=== PATIENT | male | born 1985 | race Caucasian/White ===

== ENCOUNTER 2018-09-22 13:02 | Inpatient (IN) | payer OTHER ==
[2018-09-22 13:20] VITALS: BMI 30.1
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
[2018-09-22] MEDS ORDERED: MAGNESIUM CITRATE 300 ML BOTTLE PO PRN (14:48)
[2018-09-22] MEDS ORDERED: LOPERAMIDE HCL 2 MG CAPSULE PO PRN (14:48)
[2018-09-22] MEDS ORDERED: MENTHOL/PHENOL 1 EACH UD MM PRN (14:48)
[2018-09-22] MEDS ORDERED: MAG HYDROX/AL HYDROX/SIMETH 30 ML UNIT-DOSE CUP PO PRN (14:48)
[2018-09-22] MEDS ORDERED: P-EPHED 60MG/TRIPROLIDI 2.5MG TABLET PO PRN (14:48)
[2018-09-22] MEDS ORDERED: guaiFENesin/D-METHORPHAN HB 10 ML UNIT-DOSE CUPS PO PRN (14:48)
[2018-09-22] MEDS ORDERED: MAGNESIUM HYDROX 2400MG/30ML ORAL SUSPENSION 30 ML CUP PO PRN (14:48)
[2018-09-22] MEDS ORDERED: TUBERCULIN PPD 5 TU/0.1ML VIAL ID ONE (16:34)
[2018-09-22] MEDS: IBUPROFEN 400 MG TABLET (FP) PO PRN (16:43)
[2018-09-22] MEDS: hydrOXYzine PAMOATE 50 MG CAPSULE (FP) PO PRN ×2 (16:43→21:17)
[2018-09-22] MEDS: NICOTINE 21 MG/24 HOURS TOPICAL PATCH TD SCH (16:46)
[2018-09-22] MEDS: THIAMINE HCL 100 MG TABLET (FP) PO SCH (21:17)
[2018-09-22] MEDS: MELATONIN 5 MG TABLETS PO PRN (21:17)
[2018-09-22 22:51] LABS: URINE APPEARANCE CLEAR; URINE BILIRUBIN NEGATIVE (<2.0 mg/dL); URINE COLOR STRAW; URINE GLUCOSE (UA) NEGATIVE (NEGATIVE); URINE KETONE NEGATIVE (NEGATIVE); URINE LEUK ESTERASE NEGATIVE (NEGATIVE); URINE NITRITE NEGATIVE (NEGATIVE); URINE PROTEIN NEGATIVE (NEGATIVE); URINE UROBILINOGEN NEGATIVE mg/dL (0.2-1.0)
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
[2018-09-23] MEDS: PRENATAL VITAMINS W/ FOLIC ACID TABLET (FP) PO SCH (09:59)
[2018-09-23] MEDS: NICOTINE 21 MG/24 HOURS TOPICAL PATCH TD SCH (09:59)
[2018-09-23 10:45] LABS: HEMATOCRIT 44.8 % (35.4-49); HEMOGLOBIN 14.6 GM/dL (11.7-16.9); MCH 30.7 pg (25.7-33.7); MCHC 32.6 g/dl (32.0-35.9); MEAN CELL VOLUME 94.2 fl (80-96); MEAN PLT VOLUME 9.2 fl (7.5-11.1); PLATELET COUNT 213 K/MM3 (134-434); RBC 4.76 M/mm3 (4.00-5.60); RDW 14.1 % (11.9-15.9); WHITE BLOOD COUNT 5.7 K/mm3 (4.0-10.0)
[2018-09-23 10:58] LABS: ALBUMIN 4.1 g/dl (3.4-5.0); ALK PHOS 85 U/L (45-117); ANION GAP 9 MMOL/L (8-16); BILIRUBIN,TOTAL 0.2 mg/dL (0.2-1); BLOOD UREA NITROGEN 18 mg/dL (7-18); CALCIUM 8.9 mg/dL (8.5-10.1); CHLORIDE 106 mmol/L (98-107); CO2 26 mmol/L (21-32); CREATININE 1.1 mg/dL (0.55-1.3); GLUCOSE,RANDOM 86 mg/dL (74-106); POTASSIUM 4.1 mmol/L (3.5-5.1); SGOT/AST 34 U/L (15-37); SGPT/ALT 39 U/L (13-61); SODIUM 141 mmol/L (136-145); TOT PROT 7.8 g/dl (6.4-8.2)
[2018-09-23] MEDS: THIAMINE HCL 100 MG TABLET (FP) PO SCH (21:18)
[2018-09-23] MEDS: MELATONIN 5 MG TABLETS PO PRN (21:20)
[2018-09-23] MEDS: hydrOXYzine PAMOATE 50 MG CAPSULE (FP) PO PRN (21:20)
[2018-09-24] MEDS: NICOTINE 21 MG/24 HOURS TOPICAL PATCH TD SCH (10:09)
[2018-09-24] MEDS: PRENATAL VITAMINS W/ FOLIC ACID TABLET (FP) PO SCH (10:09)
[2018-09-24] MEDS: hydrOXYzine PAMOATE 50 MG CAPSULE (FP) PO PRN ×2 (13:53→21:25)
[2018-09-24] MEDS: COLLOIDAL OATMEAL 1 BAR EACH TP PRN (13:56)
--- NOTE | 2018-09-24 16:50 | PN ---
BHS Progress Note Note: Noted 1 mm papular lesions on forehead. 2.5 cm circumscribed erythematous lesion on (R) lateral forehead, opposite (R) periorbital area. No eye involvement. Dry falky skin noted on both feet. Assess: Possible facial tinea/ringworm Plan: Tolnaftate cream to (R) facial rash. Tolnaftate cream to both feet. Reviewed hand hygiene.
[2018-09-24] MEDS: TOLNAFTATE 1% CREAM 15 GM TUBE TP SCH (21:24)
[2018-09-24] MEDS: MELATONIN 5 MG TABLETS PO PRN (21:25)
[2018-09-24] MEDS: THIAMINE HCL 100 MG TABLET (FP) PO SCH (21:26)
[2018-09-25] MEDS: PRENATAL VITAMINS W/ FOLIC ACID TABLET (FP) PO SCH (09:31)
[2018-09-25] MEDS: NICOTINE 21 MG/24 HOURS TOPICAL PATCH TD SCH (09:31)
[2018-09-25] MEDS: TOLNAFTATE 1% CREAM 15 GM TUBE TP SCH ×2 (09:32→21:13)
[2018-09-25] MEDS: hydrOXYzine PAMOATE 50 MG CAPSULE (FP) PO PRN ×2 (12:00→21:15)
[2018-09-25] MEDS: THIAMINE HCL 100 MG TABLET (FP) PO SCH (21:12)
[2018-09-25] MEDS: SUVOREXANT 10 MG TABLET PO PRN (21:15)
[2018-09-25] MEDS: MELATONIN 5 MG TABLETS PO PRN (21:15)
[2018-09-26] MEDS: ACETAMINOPHEN 325 MG TABLET (FP) PO PRN (09:53)
[2018-09-26] MEDS: hydrOXYzine PAMOATE 50 MG CAPSULE (FP) PO PRN ×2 (09:53→21:22)
[2018-09-26] MEDS: PRENATAL VITAMINS W/ FOLIC ACID TABLET (FP) PO SCH (10:49)
[2018-09-26] MEDS: TOLNAFTATE 1% CREAM 15 GM TUBE TP SCH ×2 (10:49→21:32)
[2018-09-26] MEDS: NICOTINE 21 MG/24 HOURS TOPICAL PATCH TD SCH (10:49)
[2018-09-26] MEDS: THIAMINE HCL 100 MG TABLET (FP) PO SCH (21:20)
[2018-09-26] MEDS: SUVOREXANT 10 MG TABLET PO PRN (21:21)
[2018-09-26] MEDS: MELATONIN 5 MG TABLETS PO PRN (21:21)
[2018-09-27] MEDS: TOLNAFTATE 1% CREAM 15 GM TUBE TP SCH ×2 (10:55→21:18)
[2018-09-27] MEDS: PRENATAL VITAMINS W/ FOLIC ACID TABLET (FP) PO SCH (10:55)
[2018-09-27] MEDS: NICOTINE 21 MG/24 HOURS TOPICAL PATCH TD SCH (10:55)
[2018-09-27] MEDS: hydrOXYzine PAMOATE 50 MG CAPSULE (FP) PO PRN ×2 (15:34→21:18)
[2018-09-27] MEDS: IBUPROFEN 400 MG TABLET (FP) PO PRN (15:34)
[2018-09-27] MEDS: MELATONIN 5 MG TABLETS PO PRN (21:16)
[2018-09-27] MEDS: THIAMINE HCL 100 MG TABLET (FP) PO SCH (21:16)
[2018-09-27] MEDS: SUVOREXANT 10 MG TABLET PO PRN (21:16)
[2018-09-27] MEDS: ACETAMINOPHEN 325 MG TABLET (FP) PO PRN (21:17)
[2018-09-28] MEDS: PRENATAL VITAMINS W/ FOLIC ACID TABLET (FP) PO SCH (09:55)
[2018-09-28] MEDS: TOLNAFTATE 1% CREAM 15 GM TUBE TP SCH ×2 (09:55→21:09)
[2018-09-28] MEDS: NICOTINE 21 MG/24 HOURS TOPICAL PATCH TD SCH (09:55)
--- NOTE | 2018-09-28 14:05 | PN ---
BHS Progress Note Note: C/o dry itchy scalp. Dandruff - scalp w/ dry flaky skin. No increased erythema. No lesions. Plan: Selenium shampoo daily.
[2018-09-28] MEDS: THIAMINE HCL 100 MG TABLET (FP) PO SCH (21:07)
[2018-09-28] MEDS: SUVOREXANT 10 MG TABLET PO PRN (21:08)
[2018-09-28] MEDS: hydrOXYzine PAMOATE 50 MG CAPSULE (FP) PO PRN (21:08)
[2018-09-28] MEDS: MELATONIN 5 MG TABLETS PO PRN (21:08)
[2018-09-29] MEDS: PRENATAL VITAMINS W/ FOLIC ACID TABLET (FP) PO SCH (10:50)
[2018-09-29] MEDS: NICOTINE 21 MG/24 HOURS TOPICAL PATCH TD SCH (10:50)
[2018-09-29] MEDS: SELENIUM SULFIDE 2.25% 180 ML SHAMPOO TP SCH (10:50)
[2018-09-29] MEDS: TOLNAFTATE 1% CREAM 15 GM TUBE TP SCH ×2 (10:50→21:21)
[2018-09-29] MEDS: THIAMINE HCL 100 MG TABLET (FP) PO SCH (21:18)
[2018-09-29] MEDS: MELATONIN 5 MG TABLETS PO PRN (21:19)
[2018-09-29] MEDS: hydrOXYzine PAMOATE 50 MG CAPSULE (FP) PO PRN (21:20)
[2018-09-30] MEDS: NICOTINE 21 MG/24 HOURS TOPICAL PATCH TD SCH (10:13)
[2018-09-30] MEDS: SELENIUM SULFIDE 2.25% 180 ML SHAMPOO TP SCH (10:13)
[2018-09-30] MEDS: TOLNAFTATE 1% CREAM 15 GM TUBE TP SCH ×2 (10:13→21:26)
[2018-09-30] MEDS: PRENATAL VITAMINS W/ FOLIC ACID TABLET (FP) PO SCH (10:13)
--- NOTE | 2018-09-30 11:18 | PN ---
S Progress Note Note: Patient complains of sleeping poorly despite taking Belsomra 10 mg at bedtime. Requests that dosage of medication be increased
[2018-09-30] MEDS: THIAMINE HCL 100 MG TABLET (FP) PO SCH (21:26)
[2018-09-30] MEDS: MELATONIN 5 MG TABLETS PO PRN (21:26)
[2018-09-30] MEDS: hydrOXYzine PAMOATE 50 MG CAPSULE (FP) PO PRN (21:26)
[2018-09-30] MEDS: SUVOREXANT 15 MG TABLET PO PRN (21:26)
[2018-10-01] MEDS: SELENIUM SULFIDE 2.25% 180 ML SHAMPOO TP SCH (10:50)
[2018-10-01] MEDS: NICOTINE 21 MG/24 HOURS TOPICAL PATCH TD SCH (10:50)
[2018-10-01] MEDS: PRENATAL VITAMINS W/ FOLIC ACID TABLET (FP) PO SCH (10:50)
[2018-10-01] MEDS: TOLNAFTATE 1% CREAM 15 GM TUBE TP SCH ×2 (10:50→21:54)
[2018-10-01] MEDS: hydrOXYzine PAMOATE 50 MG CAPSULE (FP) PO PRN (21:32)
[2018-10-01] MEDS: THIAMINE HCL 100 MG TABLET (FP) PO SCH (21:32)
[2018-10-01] MEDS: MELATONIN 5 MG TABLETS PO PRN (21:32)
[2018-10-01] MEDS: SUVOREXANT 15 MG TABLET PO PRN (21:33)
[2018-10-02] MEDS: PRENATAL VITAMINS W/ FOLIC ACID TABLET (FP) PO SCH (11:30)
[2018-10-02] MEDS: SELENIUM SULFIDE 2.25% 180 ML SHAMPOO TP SCH (11:30)
[2018-10-02] MEDS: TOLNAFTATE 1% CREAM 15 GM TUBE TP SCH ×2 (11:30→22:07)
[2018-10-02] MEDS: NICOTINE 21 MG/24 HOURS TOPICAL PATCH TD SCH (11:30)
[2018-10-02] MEDS: MELATONIN 5 MG TABLETS PO PRN (21:33)
[2018-10-02] MEDS: hydrOXYzine PAMOATE 50 MG CAPSULE (FP) PO PRN (21:33)
[2018-10-02] MEDS: THIAMINE HCL 100 MG TABLET (FP) PO SCH (21:33)
[2018-10-02] MEDS: SUVOREXANT 15 MG TABLET PO PRN (21:34)
[2018-10-02] MEDS: IBUPROFEN 400 MG TABLET (FP) PO PRN (22:09)
[2018-10-03] MEDS: PRENATAL VITAMINS W/ FOLIC ACID TABLET (FP) PO SCH (10:13)
[2018-10-03] MEDS: COLLOIDAL OATMEAL 1 BAR EACH TP PRN (10:15)
[2018-10-03] MEDS: hydrOXYzine PAMOATE 50 MG CAPSULE (FP) PO PRN ×2 (10:15→21:30)
[2018-10-03] MEDS: TOLNAFTATE 1% CREAM 15 GM TUBE TP SCH ×2 (10:16→21:30)
[2018-10-03] MEDS: NICOTINE 21 MG/24 HOURS TOPICAL PATCH TD SCH (10:16)
[2018-10-03] MEDS: SELENIUM SULFIDE 2.25% 180 ML SHAMPOO TP SCH (10:16)
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
[2018-10-03] MEDS: HYDROCORTISONE 1% TOPICAL CREAM 30 GM TUBE TP SCH ×2 (13:32→21:31)
[2018-10-03] MEDS: SUVOREXANT 15 MG TABLET PO PRN (21:29)
[2018-10-03] MEDS: MELATONIN 5 MG TABLETS PO PRN (21:30)
[2018-10-03] MEDS: THIAMINE HCL 100 MG TABLET (FP) PO SCH (21:30)
[2018-10-04] MEDS: HYDROCORTISONE 1% TOPICAL CREAM 30 GM TUBE TP SCH ×2 (10:24→21:26)
[2018-10-04] MEDS: PRENATAL VITAMINS W/ FOLIC ACID TABLET (FP) PO SCH (10:24)
[2018-10-04] MEDS: NICOTINE 21 MG/24 HOURS TOPICAL PATCH TD SCH (10:24)
[2018-10-04] MEDS: SELENIUM SULFIDE 2.25% 180 ML SHAMPOO TP SCH (10:24)
[2018-10-04] MEDS: TOLNAFTATE 1% CREAM 15 GM TUBE TP SCH ×2 (10:24→21:28)
[2018-10-04] MEDS: hydrOXYzine PAMOATE 50 MG CAPSULE (FP) PO PRN (21:24)
[2018-10-04] MEDS: THIAMINE HCL 100 MG TABLET (FP) PO SCH (21:24)
[2018-10-04] MEDS: MELATONIN 5 MG TABLETS PO PRN (21:24)
[2018-10-04] MEDS: IBUPROFEN 400 MG TABLET (FP) PO PRN (21:27)
[2018-10-05] MEDS: HYDROCORTISONE 1% TOPICAL CREAM 30 GM TUBE TP SCH ×2 (12:28→21:20)
[2018-10-05] MEDS: PRENATAL VITAMINS W/ FOLIC ACID TABLET (FP) PO SCH (12:28)
[2018-10-05] MEDS: SELENIUM SULFIDE 2.25% 180 ML SHAMPOO TP SCH (12:28)
[2018-10-05] MEDS: TOLNAFTATE 1% CREAM 15 GM TUBE TP SCH ×2 (12:28→21:20)
[2018-10-05] MEDS: NICOTINE 21 MG/24 HOURS TOPICAL PATCH TD SCH (12:28)
[2018-10-05] MEDS: hydrOXYzine PAMOATE 50 MG CAPSULE (FP) PO PRN ×2 (14:09→21:18)
[2018-10-05] MEDS: MELATONIN 5 MG TABLETS PO PRN (21:18)
[2018-10-05] MEDS: THIAMINE HCL 100 MG TABLET (FP) PO SCH (21:18)
[2018-10-05] MEDS ORDERED: SUVOREXANT 15 MG TABLET PO SCH (22:00)
[2018-10-06] MEDS: NICOTINE 21 MG/24 HOURS TOPICAL PATCH TD SCH (10:01)
[2018-10-06] MEDS: HYDROCORTISONE 1% TOPICAL CREAM 30 GM TUBE TP SCH ×2 (10:01→21:34)
[2018-10-06] MEDS: PRENATAL VITAMINS W/ FOLIC ACID TABLET (FP) PO SCH (10:01)
[2018-10-06] MEDS: TOLNAFTATE 1% CREAM 15 GM TUBE TP SCH ×2 (10:02→21:32)
[2018-10-06] MEDS: hydrOXYzine PAMOATE 50 MG CAPSULE (FP) PO PRN ×2 (10:02→21:31)
--- NOTE | 2018-10-06 12:32 | PN ---
S Progress Note Note: Patient reports sleeping poorly despite taking Belsomra 15 mg at bedtime. Medication dosage is being increased to 20 mg
--- NOTE | 2018-10-06 14:32 | PN ---
S Progress Note (SOAP) Subjective: patient here requesting MAT w/ Naltrexone and transition to injectable upon d./c from this facility , planning to go to [facility] outpt . Sentt o this facility by drug court . last opiate use 08/29/18 prior to incarceration . Denies recent use . Home Medication List Medication Instructions Recorded Confirmed Type NK [No Known Home Medication] 09/22/18 09/22/18 History Active Medications Generic Name Dose Route Start Last Admin Trade Name Kwasiq PRN Reason Stop Dose Admin Acetaminophen 650 mg 09/22/18 14:48 09/27/18 21:17 Tylenol - PO 650 mg Q4H PRN Administration FEVER Al Hydroxide/Mg Hydroxide 30 ml 09/22/18 14:48 Mylanta Oral Suspension - PO Q6H PRN DYSPEPSIA Colloidal Oatmeal 1 applic 09/24/18 13:21 10/03/18 10:15 Aveeno Soap - TP 1 bar DAILY PRN Administration HYGEINE Eucalyptus/Menthol/Phenol/Sorbitol 1 each 09/22/18 14:48 Cepastat Lozenge - MM Q4H PRN SORE THROAT Guaifenesin 10 ml 09/22/18 14:48 Robitussin Dm - PO Q6H PRN COUGH Hydrocortisone 1 applic 10/03/18 12:30 10/06/18 10:01 Hytone 1% Cream - TP 1 applic BID MARELY Administration Hydroxyzine Pamoate 50 mg 09/22/18 14:48 10/06/18 10:02 Vistaril - PO 50 mg Q4H PRN Administration AGITATION Ibuprofen 400 mg 09/22/18 14:48 10/04/18 21:27 Motrin - PO 400 mg Q6H PRN Administration Pain level 4-6 Loperamide HCl 4 mg 09/22/18 14:48 Imodium - PO Q6H PRN DIARRHEA Magnesium Citrate 300 ml 09/22/18 14:48 Citroma - PO Q48H PRN CONSTIPATION Magnesium Hydroxide 30 ml 09/22/18 14:48 Milk Of Magnesia - PO DAILY PRN CONSTIPATION Melatonin 5 mg 09/22/18 22:00 10/05/18 21:18 Melatonin PO 5 mg HS PRN Administration INSOMNIA Nicotine 21 mg 09/22/18 15:30 10/06/18 10:01 Nicoderm Patch - TD Not Given DAILY MARELY Multivit/Folic Acid/Iron 1 tab 09/23/18 10:00 10/06/18 10:01 Vitamins (Sjr) - PO Not Given DAILY MARELY Pseudoephedrine/Triprolidine 1 combo 09/22/18 14:48 Actifed - PO TID PRN NASAL CONGESTION Suvorexant 20 mg 10/06/18 22:00 Belsomra PO 10/09/18 21:59 HS PRN INSOMNIA Thiamine HCl 100 mg 09/22/18 22:00 10/05/18 21:18 Vitamin B1 - PO 100 mg HS MARELY Administration Tolnaftate 1 applic 09/24/18 22:00 10/06/18 10:02 Tinactin 1% Cream - TP Not Given BID [facility] Objective: wnwd , ambulating freely . Vital Signs - 24 hr 10/06/18 10/06/18 10/06/18 00:30 03:30 06:57 Temperature 98.0 F Pulse Rate 80 Respiratory 18 18 19 Rate Blood Pressure 128/76 CBC,CMP WBC 5.7 K/mm3 (4.0-10.0) 09/23/18 06:00 RBC 4.76 M/mm3 (4.00-5.60) 09/23/18 06:00 Hgb 14.6 GM/dL (11.7-16.9) 09/23/18 06:00 Hct 44.8 % (35.4-49) 09/23/18 06:00 MCV 94.2 fl (80-96) 09/23/18 06:00 MCH 30.7 pg (25.7-33.7) 09/23/18 06:00 MCHC 32.6 g/dl (32.0-35.9) 09/23/18 06:00 RDW 14.1 % (11.9-15.9) 09/23/18 06:00 Plt Count 213 K/MM3 (134-434) 09/23/18 06:00 MPV 9.2 fl (7.5-11.1) 09/23/18 06:00 Sodium 141 mmol/L (136-145) 09/23/18 06:00 Potassium 4.1 mmol/L (3.5-5.1) 09/23/18 06:00 Chloride 106 mmol/L (98-107) 09/23/18 06:00 Carbon Dioxide 26 mmol/L (21-32) 09/23/18 06:00 Anion Gap 9 MMOL/L (8-16) 09/23/18 06:00 BUN 18 mg/dL (7-18) 09/23/18 06:00 Creatinine 1.1 mg/dL (0.55-1.3) 09/23/18 06:00 Creat Clearance w eGFR > 60 (>60) 09/23/18 06:00 Random Glucose 86 mg/dL (74-106) 09/23/18 06:00 Calcium 8.9 mg/dL (8.5-10.1) 09/23/18 06:00 Total Bilirubin 0.2 mg/dL (0.2-1) 09/23/18 06:00 AST 34 U/L (15-37) 09/23/18 06:00 ALT 39 U/L (13-61) 09/23/18 06:00 Alkaline Phosphatase 85 U/L (45-117) 09/23/18 06:00 Total Protein 7.8 g/dl (6.4-8.2) 09/23/18 06:00 Albumin 4.1 g/dl (3.4-5.0) 09/23/18 06:00 10/06/18 17:09 Assessment: Opiate dependence by history , court mandate to treatment . Plan: start Naltrexone 10/13/17 , urine toxicology discussed with patient , agreeable w/ POC
[2018-10-06] MEDS: SUVOREXANT 20 MG TABLET PO PRN (21:30)
[2018-10-06] MEDS: MELATONIN 5 MG TABLETS PO PRN (21:31)
[2018-10-06] MEDS: THIAMINE HCL 100 MG TABLET (FP) PO SCH (21:31)
[2018-10-06] MEDS: IBUPROFEN 400 MG TABLET (FP) PO PRN (21:33)
[2018-10-07] MEDS: HYDROCORTISONE 1% TOPICAL CREAM 30 GM TUBE TP SCH ×2 (11:51→21:35)
[2018-10-07] MEDS: PRENATAL VITAMINS W/ FOLIC ACID TABLET (FP) PO SCH (11:51)
[2018-10-07] MEDS: TOLNAFTATE 1% CREAM 15 GM TUBE TP SCH ×2 (11:51→21:35)
[2018-10-07] MEDS: NICOTINE 21 MG/24 HOURS TOPICAL PATCH TD SCH (11:51)
[2018-10-07] MEDS: MELATONIN 5 MG TABLETS PO PRN (21:32)
[2018-10-07] MEDS: THIAMINE HCL 100 MG TABLET (FP) PO SCH (21:32)
[2018-10-07] MEDS: hydrOXYzine PAMOATE 50 MG CAPSULE (FP) PO PRN (21:33)
[2018-10-07] MEDS: IBUPROFEN 400 MG TABLET (FP) PO PRN (21:33)
[2018-10-07] MEDS: SUVOREXANT 20 MG TABLET PO PRN (21:34)
[2018-10-08] MEDS: HYDROCORTISONE 1% TOPICAL CREAM 30 GM TUBE TP SCH ×2 (10:06→21:32)
[2018-10-08] MEDS: NICOTINE 21 MG/24 HOURS TOPICAL PATCH TD SCH (10:06)
[2018-10-08] MEDS: PRENATAL VITAMINS W/ FOLIC ACID TABLET (FP) PO SCH (10:06)
[2018-10-08] MEDS: TOLNAFTATE 1% CREAM 15 GM TUBE TP SCH ×2 (10:06→21:32)
[2018-10-08 11:13] LABS: COCAINE, UR NEGATIVE ng/ml (CUTOFF=300); METHADONE, UR NEGATIVE ng/ml (CUTOFF=300); OPIATES, URI NEGATIVE ng/ml (CUTOFF=300); PHENCYCLIDINE,URINE NEGATIVE ng/ml (CUTOFF=25); URINE AMPHETAMINES NEGATIVE ng/ml (CUTOFF=500); URINE BARBITURATES NEGATIVE ng/ml (CUTOFF=200); URINE BENZODIAZEPINES NEGATIVE ng/ml (CUTOFF=200)
[2018-10-08] MEDS: THIAMINE HCL 100 MG TABLET (FP) PO SCH (21:27)
[2018-10-08] MEDS: MELATONIN 5 MG TABLETS PO PRN (21:27)
[2018-10-08] MEDS: hydrOXYzine PAMOATE 50 MG CAPSULE (FP) PO PRN (21:27)
[2018-10-08] MEDS: SUVOREXANT 20 MG TABLET PO PRN (21:30)
[2018-10-08] MEDS: IBUPROFEN 400 MG TABLET (FP) PO PRN (21:30)
[2018-10-09] MEDS: TOLNAFTATE 1% CREAM 15 GM TUBE TP SCH ×2 (10:07→21:43)
[2018-10-09] MEDS: NICOTINE 21 MG/24 HOURS TOPICAL PATCH TD SCH (10:07)
[2018-10-09] MEDS: HYDROCORTISONE 1% TOPICAL CREAM 30 GM TUBE TP SCH ×2 (10:07→21:43)
[2018-10-09] MEDS: PRENATAL VITAMINS W/ FOLIC ACID TABLET (FP) PO SCH (10:07)
[2018-10-09] MEDS: hydrOXYzine PAMOATE 50 MG CAPSULE (FP) PO PRN ×2 (10:08→21:41)
[2018-10-09] MEDS: IBUPROFEN 400 MG TABLET (FP) PO PRN (17:04)
[2018-10-09] MEDS: ACETAMINOPHEN 325 MG TABLET (FP) PO PRN (21:41)
[2018-10-09] MEDS: SUVOREXANT 20 MG TABLET PO PRN (21:41)
[2018-10-09] MEDS: MELATONIN 5 MG TABLETS PO PRN (21:42)
[2018-10-09] MEDS: THIAMINE HCL 100 MG TABLET (FP) PO SCH (21:43)
[2018-10-10] MEDS: PRENATAL VITAMINS W/ FOLIC ACID TABLET (FP) PO SCH (11:36)
[2018-10-10] MEDS: NICOTINE 21 MG/24 HOURS TOPICAL PATCH TD SCH (11:36)
[2018-10-10] MEDS: TOLNAFTATE 1% CREAM 15 GM TUBE TP SCH ×2 (11:36→21:28)
[2018-10-10] MEDS: HYDROCORTISONE 1% TOPICAL CREAM 30 GM TUBE TP SCH ×2 (11:36→21:28)
[2018-10-10] MEDS: hydrOXYzine PAMOATE 50 MG CAPSULE (FP) PO PRN (21:27)
[2018-10-10] MEDS: THIAMINE HCL 100 MG TABLET (FP) PO SCH (21:27)
[2018-10-10] MEDS: IBUPROFEN 400 MG TABLET (FP) PO PRN (21:27)
[2018-10-10] MEDS: MELATONIN 5 MG TABLETS PO PRN (21:27)
[2018-10-10] MEDS: SUVOREXANT 15 MG TABLET PO PRN (21:29)
[2018-10-11] MEDS: NICOTINE 21 MG/24 HOURS TOPICAL PATCH TD SCH (10:04)
[2018-10-11] MEDS: TOLNAFTATE 1% CREAM 15 GM TUBE TP SCH ×2 (10:04→22:14)
[2018-10-11] MEDS: HYDROCORTISONE 1% TOPICAL CREAM 30 GM TUBE TP SCH ×2 (10:04→21:36)
[2018-10-11] MEDS: PRENATAL VITAMINS W/ FOLIC ACID TABLET (FP) PO SCH (10:04)
[2018-10-11] MEDS: COLLOIDAL OATMEAL 1 BAR EACH TP PRN (10:04)
[2018-10-11] MEDS: hydrOXYzine PAMOATE 50 MG CAPSULE (FP) PO PRN (21:33)
[2018-10-11] MEDS: IBUPROFEN 400 MG TABLET (FP) PO PRN (21:33)
[2018-10-11] MEDS: THIAMINE HCL 100 MG TABLET (FP) PO SCH (21:33)
[2018-10-11] MEDS: MELATONIN 5 MG TABLETS PO PRN (21:33)
[2018-10-11] MEDS: SUVOREXANT 15 MG TABLET PO PRN (21:35)
[2018-10-12] MEDS: NICOTINE 21 MG/24 HOURS TOPICAL PATCH TD SCH (09:56)
[2018-10-12] MEDS: PRENATAL VITAMINS W/ FOLIC ACID TABLET (FP) PO SCH (09:56)
[2018-10-12] MEDS: TOLNAFTATE 1% CREAM 15 GM TUBE TP SCH ×2 (09:56→21:17)
[2018-10-12] MEDS: HYDROCORTISONE 1% TOPICAL CREAM 30 GM TUBE TP SCH ×2 (09:56→21:15)
[2018-10-12] MEDS: hydrOXYzine PAMOATE 50 MG CAPSULE (FP) PO PRN (21:15)
[2018-10-12] MEDS: IBUPROFEN 400 MG TABLET (FP) PO PRN (21:15)
[2018-10-12] MEDS: MELATONIN 5 MG TABLETS PO PRN (21:15)
[2018-10-12] MEDS: SUVOREXANT 15 MG TABLET PO PRN (21:17)
[2018-10-12] MEDS: THIAMINE HCL 100 MG TABLET (FP) PO SCH (21:18)
[2018-10-13] MEDS: PRENATAL VITAMINS W/ FOLIC ACID TABLET (FP) PO SCH (10:16)
[2018-10-13] MEDS: TOLNAFTATE 1% CREAM 15 GM TUBE TP SCH ×2 (10:16→21:22)
[2018-10-13] MEDS: NICOTINE 21 MG/24 HOURS TOPICAL PATCH TD SCH (10:16)
[2018-10-13] MEDS: HYDROCORTISONE 1% TOPICAL CREAM 30 GM TUBE TP SCH ×2 (10:16→21:22)
[2018-10-13] MEDS ORDERED: NALTREXONE HCL 50 MG TABLET PO ONE (11:00)
[2018-10-13] MEDS ORDERED: NALTREXONE HCL 50 MG TABLET PO SCH (14:00)
--- NOTE | 2018-10-13 14:21 | PN ---
Psychiatric Progress Note Vital Signs: Vital Signs Period Temp Pulse Resp BP Sys/Triplett Pulse Ox Last 24 Hr 97.2 F 75 18-18 133/77 Date of Session: 10/13/18 Chief Complaint:: "I'm having difficulty sleeping." HPI: Patient admitted to for opioid and cocaine dependence. Current Medications: Active Medications Generic Name Dose Route Start Last Admin Trade Name Freq PRN Reason Stop Dose Admin Acetaminophen 650 mg 09/22/18 14:48 10/09/18 21:41 Tylenol - PO 650 mg Q4H PRN Administration FEVER Al Hydroxide/Mg Hydroxide 30 ml 09/22/18 14:48 Mylanta Oral Suspension - PO Q6H PRN DYSPEPSIA Colloidal Oatmeal 1 applic 09/24/18 13:21 10/11/18 10:04 Aveeno Soap - TP 1 bar DAILY PRN Administration HYGEINE Eucalyptus/Menthol/Phenol/Sorbitol 1 each 09/22/18 14:48 Cepastat Lozenge - MM Q4H PRN SORE THROAT Guaifenesin 10 ml 09/22/18 14:48 Robitussin Dm - PO Q6H PRN COUGH Hydrocortisone 1 applic 10/03/18 12:30 10/13/18 10:16 Hytone 1% Cream - TP Not Given BID MARELY Hydroxyzine Pamoate 50 mg 09/22/18 14:48 10/12/18 21:15 Vistaril - PO 50 mg Q4H PRN Administration AGITATION Ibuprofen 400 mg 09/22/18 14:48 10/12/18 21:15 Motrin - PO 400 mg Q6H PRN Administration Pain level 4-6 Loperamide HCl 4 mg 09/22/18 14:48 10/10/18 21:30 Imodium - PO 4 mg Q6H PRN Administration DIARRHEA Magnesium Citrate 300 ml 09/22/18 14:48 Citroma - PO Q48H PRN CONSTIPATION Magnesium Hydroxide 30 ml 09/22/18 14:48 Milk Of Magnesia - PO DAILY PRN CONSTIPATION Melatonin 5 mg 09/22/18 22:00 10/12/18 21:15 Melatonin PO 5 mg HS PRN Administration INSOMNIA Naltrexone HCl 50 mg 10/14/18 10:00 Revia - PO DAILY MARELY Nicotine 21 mg 09/22/18 15:30 01/17/19 10:16 Nicoderm Patch - TD Not Given DAILY MARELY Multivit/Folic Acid/Iron 1 tab 09/23/18 10:00 10/13/18 10:16 Vitamins (Sjr) - PO Not Given DAILY MARELY Pseudoephedrine/Triprolidine 1 combo 09/22/18 14:48 Actifed - PO TID PRN NASAL CONGESTION Suvorexant 15 mg 10/10/18 22:00 10/12/18 21:17 Belsomra PO 15 mg HS PRN Administration INSOMNIA Thiamine HCl 100 mg 09/22/18 22:00 10/12/18 21:18 Vitamin B1 - PO 100 mg HS MARELY Administration Tolnaftate 1 applic 09/24/18 22:00 10/13/18 10:16 Tinactin 1% Cream - TP Not Given BID [facility] Medication(s) Change(s): Yes. Will increase belsomra 15mg to 20mg HS Current Side Effect: No Lab tests ordered: No Lab tests reviewed: Yes Provider note:: Chart reviewed. Dr. Stock's note read and appreciated. Patient reports poor sleep. Insomnia was addressed with belsomra 10mg. Mr. Sepulveda states the medication was effective at first but than needed an increase in dose after experencing difficulty sleeping. Patient was than ordered belsomra 15mg. Patient states the increase dosage was effective but is once again experiencing difficulty sleeping. Will increase Belsomra 15mg to 20mg. Psychoeducation and sleep hygiene provided. Verbal consent given. Total face to face time:: 15 Mental Status Exam - Mental Status Exam Alert and Oriented to: Time, Place, Person Cognitive Function: Good Patient Appearance: Well Groomed Mood: Hopeful Affect: Appropriate Patient Behavior: Appropriate, Cooperative Speech Pattern: Clear, Appropriate Voice Loudness: Normal Thought Process: Intact, Flight of Ideas Thought Disorder: Not Present Hallucinations: Denies Suicidal Ideation: Denies Homicidal Ideation: Denies Insight/Judgement: Poor Sleep: Poorly Appetite: Fair Muscle strength/Tone: Normal Gait/Station: Normal Psychiatric Treatment Plan - Problem List (1) Cocaine dependence Current Visit: Yes (2) Opioid dependence Current Visit: Yes (3) Substance-induced anxiety disorder Current Visit: Yes (4) Substance-induced sleep disorder Current Visit: Yes (5) Nicotine dependence Current Visit: Yes (6) PTSD (post-traumatic stress disorder) Current Visit: Yes (7) Acute stress disorder Current Visit: Yes
[2018-10-13] MEDS: THIAMINE HCL 100 MG TABLET (FP) PO SCH (21:19)
[2018-10-13] MEDS: hydrOXYzine PAMOATE 50 MG CAPSULE (FP) PO PRN (21:19)
[2018-10-13] MEDS: MELATONIN 5 MG TABLETS PO PRN (21:19)
[2018-10-13] MEDS: SUVOREXANT 20 MG TABLET PO PRN (21:21)
[2018-10-13] MEDS: IBUPROFEN 400 MG TABLET (FP) PO PRN (21:21)
[2018-10-14] MEDS: PRENATAL VITAMINS W/ FOLIC ACID TABLET (FP) PO SCH (10:05)
[2018-10-14] MEDS: NICOTINE 21 MG/24 HOURS TOPICAL PATCH TD SCH (10:05)
[2018-10-14] MEDS: NALTREXONE HCL 50 MG TABLET PO SCH (10:05)
[2018-10-14] MEDS: HYDROCORTISONE 1% TOPICAL CREAM 30 GM TUBE TP SCH ×2 (10:05→23:58)
[2018-10-14] MEDS: TOLNAFTATE 1% CREAM 15 GM TUBE TP SCH ×2 (10:05→23:58)
[2018-10-14] MEDS: IBUPROFEN 400 MG TABLET (FP) PO PRN ×2 (11:31→19:10)
[2018-10-14] MEDS: MELATONIN 5 MG TABLETS PO PRN (21:25)
[2018-10-14] MEDS: hydrOXYzine PAMOATE 50 MG CAPSULE (FP) PO PRN (21:27)
[2018-10-14] MEDS: THIAMINE HCL 100 MG TABLET (FP) PO SCH (21:28)
[2018-10-14] MEDS: SUVOREXANT 20 MG TABLET PO PRN (21:30)
[2018-10-15] MEDS: NICOTINE 21 MG/24 HOURS TOPICAL PATCH TD SCH (09:57)
[2018-10-15] MEDS: HYDROCORTISONE 1% TOPICAL CREAM 30 GM TUBE TP SCH ×2 (09:57→21:44)
[2018-10-15] MEDS: NALTREXONE HCL 50 MG TABLET PO SCH (09:57)
[2018-10-15] MEDS: PRENATAL VITAMINS W/ FOLIC ACID TABLET (FP) PO SCH (09:57)
[2018-10-15] MEDS: TOLNAFTATE 1% CREAM 15 GM TUBE TP SCH ×2 (09:58→22:20)
[2018-10-15] MEDS: IBUPROFEN 400 MG TABLET (FP) PO PRN (21:43)
[2018-10-15] MEDS: MELATONIN 5 MG TABLETS PO PRN (21:44)
[2018-10-15] MEDS: SUVOREXANT 20 MG TABLET PO PRN (21:45)
[2018-10-15] MEDS: hydrOXYzine PAMOATE 50 MG CAPSULE (FP) PO PRN (21:45)
[2018-10-15] MEDS: THIAMINE HCL 100 MG TABLET (FP) PO SCH (22:21)
[2018-10-16] MEDS ORDERED: ASPIRIN 81 MG CHEWABLE TABLETS PO ONE (07:05)
--- NOTE | 2018-10-16 07:09 | PN ---
[facility] Progress Note Note: Patient complained of chest discomfort rated at 7/10. He denies cardiac history Vital Signs Temperature 97.6 F 10/16/18 06:49 Pulse Rate 73 10/16/18 06:49 Respiratory Rate 18 10/16/18 06:49 Blood Pressure 126/80 10/16/18 06:49 O2 Sat by Pulse Oximetry (%) Action: EKG stat - Result - Normal Sinus rhythm Aspirin 81mg 1 tablet oral stat
[2018-10-16] MEDS: NICOTINE 21 MG/24 HOURS TOPICAL PATCH TD SCH (10:12)
[2018-10-16] MEDS: PRENATAL VITAMINS W/ FOLIC ACID TABLET (FP) PO SCH (10:12)
[2018-10-16] MEDS: NALTREXONE HCL 50 MG TABLET PO SCH (10:13)
[2018-10-16] MEDS: HYDROCORTISONE 1% TOPICAL CREAM 30 GM TUBE TP SCH ×2 (10:13→21:20)
[2018-10-16] MEDS: hydrOXYzine PAMOATE 50 MG CAPSULE (FP) PO PRN ×2 (10:14→21:19)
[2018-10-16] MEDS: TOLNAFTATE 1% CREAM 15 GM TUBE TP SCH ×2 (10:14→22:28)
--- NOTE | 2018-10-16 19:40 | EKG ---
Test Reason : Blood Pressure : / mmHG Vent. Rate : 067 BPM Atrial Rate : 067 BPM P-R Int : 156 ms QRS Dur : 094 ms QT Int : 390 ms P-R-T Axes : 010 047 027 degrees QTc Int : 412 ms NORMAL SINUS RHYTHM NORMAL ECG NO PREVIOUS ECGS AVAILABLE Confirmed by PAMELA COLEMAN MD ([id number]) on 10/16/2018 7:39:35 PM Referred By: Confirmed By:PAMELA COLEMAN MD
[2018-10-16] MEDS: MELATONIN 5 MG TABLETS PO PRN (21:19)
[2018-10-16] MEDS: THIAMINE HCL 100 MG TABLET (FP) PO SCH (21:19)
[2018-10-16] MEDS: SUVOREXANT 20 MG TABLET PO PRN (21:20)
[2018-10-17] MEDS: IBUPROFEN 400 MG TABLET (FP) PO PRN ×2 (06:37→21:31)
[2018-10-17] MEDS: NALTREXONE HCL 50 MG TABLET PO SCH (09:55)
[2018-10-17] MEDS: TOLNAFTATE 1% CREAM 15 GM TUBE TP SCH ×2 (09:56→21:32)
[2018-10-17] MEDS: PRENATAL VITAMINS W/ FOLIC ACID TABLET (FP) PO SCH (09:56)
[2018-10-17] MEDS: HYDROCORTISONE 1% TOPICAL CREAM 30 GM TUBE TP SCH ×2 (09:56→21:28)
[2018-10-17] MEDS: NICOTINE 21 MG/24 HOURS TOPICAL PATCH TD SCH (09:56)
[2018-10-17] MEDS: SUVOREXANT 20 MG TABLET PO PRN (21:30)
[2018-10-17] MEDS: COLLOIDAL OATMEAL 1 BAR EACH TP PRN (21:31)
[2018-10-17] MEDS: hydrOXYzine PAMOATE 50 MG CAPSULE (FP) PO PRN (21:31)
[2018-10-17] MEDS: THIAMINE HCL 100 MG TABLET (FP) PO SCH (21:32)
[2018-10-17] MEDS: MELATONIN 5 MG TABLETS PO PRN (21:33)
[2018-10-18] MEDS: PRENATAL VITAMINS W/ FOLIC ACID TABLET (FP) PO SCH (10:30)
[2018-10-18] MEDS: NICOTINE 21 MG/24 HOURS TOPICAL PATCH TD SCH (10:30)
[2018-10-18] MEDS: TOLNAFTATE 1% CREAM 15 GM TUBE TP SCH ×2 (10:30→21:47)
[2018-10-18] MEDS: HYDROCORTISONE 1% TOPICAL CREAM 30 GM TUBE TP SCH ×2 (10:30→21:23)
[2018-10-18] MEDS: NALTREXONE HCL 50 MG TABLET PO SCH (10:30)
[2018-10-18] MEDS: IBUPROFEN 400 MG TABLET (FP) PO PRN (10:31)
[2018-10-18] MEDS: THIAMINE HCL 100 MG TABLET (FP) PO SCH (21:21)
[2018-10-18] MEDS: hydrOXYzine PAMOATE 50 MG CAPSULE (FP) PO PRN (21:21)
[2018-10-18] MEDS: MELATONIN 5 MG TABLETS PO PRN (21:21)
[2018-10-18] MEDS: SUVOREXANT 20 MG TABLET PO PRN (21:22)
[2018-10-19] MEDS: NALTREXONE HCL 50 MG TABLET PO SCH (09:52)
[2018-10-19] MEDS: hydrOXYzine PAMOATE 50 MG CAPSULE (FP) PO PRN ×2 (09:53→21:23)
[2018-10-19] MEDS: IBUPROFEN 400 MG TABLET (FP) PO PRN ×2 (09:53→21:26)
[2018-10-19] MEDS: TOLNAFTATE 1% CREAM 15 GM TUBE TP SCH ×2 (10:06→21:27)
[2018-10-19] MEDS: PRENATAL VITAMINS W/ FOLIC ACID TABLET (FP) PO SCH (10:06)
[2018-10-19] MEDS: NICOTINE 21 MG/24 HOURS TOPICAL PATCH TD SCH (10:06)
[2018-10-19] MEDS: HYDROCORTISONE 1% TOPICAL CREAM 30 GM TUBE TP SCH ×2 (10:06→21:27)
--- NOTE | 2018-10-19 11:17 | PN ---
Psychiatric Progress Note Vital Signs: Vital Signs Period Temp Pulse Resp BP Sys/Triplett Pulse Ox Last 24 Hr 97.6 F 75 18-18 126/80 Date of Session: 10/19/18 Chief Complaint:: Discharge visit HPI: Patient addressed Cocaine and Opioid dependence comorbid with Substance induced mood disorder. Current Medications: Active Medications Generic Name Dose Route Start Last Admin Trade Name Freq PRN Reason Stop Dose Admin Acetaminophen 650 mg 09/22/18 14:48 10/09/18 21:41 Tylenol - PO 650 mg Q4H PRN Administration FEVER Al Hydroxide/Mg Hydroxide 30 ml 09/22/18 14:48 Mylanta Oral Suspension - PO Q6H PRN DYSPEPSIA Colloidal Oatmeal 1 applic 09/24/18 13:21 10/17/18 21:31 Aveeno Soap - TP 1 bar DAILY PRN Administration HYGEINE Eucalyptus/Menthol/Phenol/Sorbitol 1 each 09/22/18 14:48 Cepastat Lozenge - MM Q4H PRN SORE THROAT Guaifenesin 10 ml 09/22/18 14:48 Robitussin Dm - PO Q6H PRN COUGH Hydrocortisone 1 applic 10/03/18 12:30 10/19/18 10:06 Hytone 1% Cream - TP Not Given BID MARELY Hydroxyzine Pamoate 50 mg 09/22/18 14:48 10/19/18 09:53 Vistaril - PO 50 mg Q4H PRN Administration AGITATION Ibuprofen 400 mg 09/22/18 14:48 10/19/18 09:53 Motrin - PO 400 mg Q6H PRN Administration Pain level 4-6 Loperamide HCl 4 mg 09/22/18 14:48 10/10/18 21:30 Imodium - PO 4 mg Q6H PRN Administration DIARRHEA Magnesium Citrate 300 ml 09/22/18 14:48 Citroma - PO Q48H PRN CONSTIPATION Magnesium Hydroxide 30 ml 09/22/18 14:48 Milk Of Magnesia - PO DAILY PRN CONSTIPATION Melatonin 5 mg 09/22/18 22:00 10/18/18 21:21 Melatonin PO 5 mg HS PRN Administration INSOMNIA Naltrexone HCl 50 mg 10/14/18 10:00 10/19/18 09:52 Revia - PO 50 mg DAILY MARELY Administration Nicotine 21 mg 09/22/18 15:30 10/19/18 10:06 Nicoderm Patch - TD Not Given DAILY MARELY Multivit/Folic Acid/Iron 1 tab 09/23/18 10:00 10/19/18 10:06 Vitamins (Sjr) - PO Not Given DAILY MARELY Pseudoephedrine/Triprolidine 1 combo 09/22/18 14:48 Actifed - PO TID PRN NASAL CONGESTION Suvorexant 20 mg 10/13/18 22:00 10/18/18 21:22 Belsomra PO 10/19/18 21:59 20 mg HS PRN Administration INSOMNIA Thiamine HCl 100 mg 09/22/18 22:00 10/18/18 21:21 Vitamin B1 - PO 100 mg HS MARELY Administration Tolnaftate 1 applic 09/24/18 22:00 10/19/18 10:06 Tinactin 1% Cream - TP Not Given BID MARELY Current Side Effect: No Lab tests ordered: No Lab tests reviewed: Yes Provider note:: Patient will complete this program tomorrow 10/20/18.He has met his treqtment goals and will continue to address his issues on outpatient basis.Patient identifies areas of difficulties,behavior which contribute to relapse,coping skills,support utilization as well as other resourses to reduce anxiety and maintain recovery has been discussed with the patient. Patient is stable for discharge tomorrow 10/20/18. Total face to face time:: 30 Mental Status Exam - Mental Status Exam Alert and Oriented to: Time, Place, Person Cognitive Function: Grossly Intact Psychiatric Treatment Plan - Problem List (1) Cocaine dependence Current Visit: Yes (2) Opioid dependence Current Visit: Yes (3) Substance-induced anxiety disorder Current Visit: Yes (4) Substance-induced sleep disorder Current Visit: Yes (5) Cheekbone fracture Current Visit: Yes (6) Nicotine dependence Current Visit: Yes
--- NOTE | 2018-10-19 14:27 | PN ---
[facility] Progress Note Note: PT TOLERATED WELL ON REVIA 50 MG DAILY. PT REQUESTS ONCE A MONTH TREATMENT WITH VIVITROL. Vital Signs 10/19/18 06:46 Temperature 97.6 F Pulse Rate 75 Respiratory 18 Rate Blood Pressure 126/80 Laboratory Tests 09/22/18 09/23/18 09/23/18 14:07 06:00 06:00 WBC 5.7 RBC 4.76 Hgb 14.6 Hct 44.8 MCV 94.2 MCH 30.7 MCHC 32.6 RDW 14.1 Plt Count 213 MPV 9.2 Sodium Potassium Chloride Carbon Dioxide Anion Gap BUN Creatinine Creat Clearance w eGFR Random Glucose Calcium Total Bilirubin AST ALT Alkaline Phosphatase Total Protein Albumin Urine Color Straw Urine Appearance Clear Urine pH 6.0 Ur Specific [place] 1.009 L Urine Protein Negative Urine Glucose (UA) Negative Urine Ketones Negative Urine Blood Negative Urine Nitrite Negative Urine Bilirubin Negative Urine Urobilinogen Negative Ur Leukocyte Esterase Negative Opiates Screen Methadone Screen Barbiturate Screen Phencyclidine Screen Ur Amphetamines Screen MDMA (Ecstasy) Screen Benzodiazepines Screen Cocaine Screen U Marijuana (THC) Screen RPR Titer HIV 1&2 Antibody Screen Negative HIV P24 Antigen Negative 09/23/18 09/23/18 10/07/18 06:00 06:00 10:51 WBC RBC Hgb Hct MCV MCH MCHC RDW Plt Count MPV Sodium 141 Potassium 4.1 Chloride 106 Carbon Dioxide 26 Anion Gap 9 BUN 18 Creatinine 1.1 Creat Clearance w eGFR > 60 Random Glucose 86 Calcium 8.9 Total Bilirubin 0.2 AST 34 ALT 39 Alkaline Phosphatase 85 Total Protein 7.8 Albumin 4.1 Urine Color Urine Appearance Urine pH Ur Specific [place] Urine Protein Urine Glucose (UA) Urine Ketones Urine Blood Urine Nitrite Urine Bilirubin Urine Urobilinogen Ur Leukocyte Esterase Opiates Screen Negative Methadone Screen Negative Barbiturate Screen Negative Phencyclidine Screen Negative Ur Amphetamines Screen Negative MDMA (Ecstasy) Screen Negative Benzodiazepines Screen Negative Cocaine Screen Negative U Marijuana (THC) Screen Negative RPR Titer Nonreactive HIV 1&2 Antibody Screen HIV P24 Antigen PLAN:D/C NALTREXONE 50 MG PO DAILY TODAY VIVITROL 380 MG IM X ONE ON 10/20/18 PT TO FOLLOW UP CD TREATMENT AT [facility] RECOMMENDED AFTER DISCHARGE FROM INPATIENT REHAB.
[2018-10-19] MEDS: MELATONIN 5 MG TABLETS PO PRN (21:23)
[2018-10-19] MEDS: THIAMINE HCL 100 MG TABLET (FP) PO SCH (21:27)
[2018-10-19] MEDS ORDERED: SUVOREXANT 20 MG TABLET PO PRN (22:00)
[2018-10-20] MEDS: IBUPROFEN 400 MG TABLET (FP) PO PRN (06:43)
[2018-10-20 06:48] VITALS: BP 126/71; PULSE 73; TEMP 97.7
[2018-10-20] MEDS: PRENATAL VITAMINS W/ FOLIC ACID TABLET (FP) PO SCH (09:29)
[2018-10-20] MEDS: HYDROCORTISONE 1% TOPICAL CREAM 30 GM TUBE TP SCH (09:29)
[2018-10-20] MEDS: NICOTINE 21 MG/24 HOURS TOPICAL PATCH TD SCH (09:29)
[2018-10-20] MEDS: TOLNAFTATE 1% CREAM 15 GM TUBE TP SCH (09:29)
[2018-10-20] MEDS ORDERED: NALTREXONE MICROSPHERES (VIVITROL) 380 MG DISP.SYRIN IM ONE (10:00)
--- NOTE | 2018-10-20 11:43 | PN ---
[facility] Progress Note Note: REHAB COMPLETED TODAY AND DISCHARGING TO [facility] CD TREATMENT. PT REPORTS HE WILL FOLLOW UP WITH [facility] FOR MEDICAL MANAGEMENT. PT IS ALERT O X 3. NAD. Vital Signs - 24 hr 10/20/18 10/20/18 10/20/18 00:30 03:30 06:47 Temperature 97.7 F Pulse Rate 73 Respiratory 18 18 18 Rate Blood Pressure 126/71 Laboratory Tests 09/22/18 09/23/18 09/23/18 14:07 06:00 06:00 WBC 5.7 RBC 4.76 Hgb 14.6 Hct 44.8 MCV 94.2 MCH 30.7 MCHC 32.6 RDW 14.1 Plt Count 213 MPV 9.2 Sodium Potassium Chloride Carbon Dioxide Anion Gap BUN Creatinine Creat Clearance w eGFR Random Glucose Calcium Total Bilirubin AST ALT Alkaline Phosphatase Total Protein Albumin Urine Color Straw Urine Appearance Clear Urine pH 6.0 Ur Specific [place] 1.009 L Urine Protein Negative Urine Glucose (UA) Negative Urine Ketones Negative Urine Blood Negative Urine Nitrite Negative Urine Bilirubin Negative Urine Urobilinogen Negative Ur Leukocyte Esterase Negative Opiates Screen Methadone Screen Barbiturate Screen Phencyclidine Screen Ur Amphetamines Screen MDMA (Ecstasy) Screen Benzodiazepines Screen Cocaine Screen U Marijuana (THC) Screen RPR Titer HIV 1&2 Antibody Screen Negative HIV P24 Antigen Negative 09/23/18 09/23/18 10/07/18 06:00 06:00 10:51 WBC RBC Hgb Hct MCV MCH MCHC RDW Plt Count MPV Sodium 141 Potassium 4.1 Chloride 106 Carbon Dioxide 26 Anion Gap 9 BUN 18 Creatinine 1.1 Creat Clearance w eGFR > 60 Random Glucose 86 Calcium 8.9 Total Bilirubin 0.2 AST 34 ALT 39 Alkaline Phosphatase 85 Total Protein 7.8 Albumin 4.1 Urine Color Urine Appearance Urine pH Ur Specific [place] Urine Protein Urine Glucose (UA) Urine Ketones Urine Blood Urine Nitrite Urine Bilirubin Urine Urobilinogen Ur Leukocyte Esterase Opiates Screen Negative Methadone Screen Negative Barbiturate Screen Negative Phencyclidine Screen Negative Ur Amphetamines Screen Negative MDMA (Ecstasy) Screen Negative Benzodiazepines Screen Negative Cocaine Screen Negative U Marijuana (THC) Screen Negative RPR Titer Nonreactive HIV 1&2 Antibody Screen HIV P24 Antigen Active Medications Generic Name Dose Route Start Last Admin Trade Name Freq PRN Reason Stop Dose Admin Acetaminophen 650 mg 09/22/18 14:48 10/09/18 21:41 Tylenol - PO 650 mg Q4H PRN Administration FEVER Al Hydroxide/Mg Hydroxide 30 ml 09/22/18 14:48 Mylanta Oral Suspension - PO Q6H PRN DYSPEPSIA Colloidal Oatmeal 1 applic 09/24/18 13:21 10/17/18 21:31 Aveeno Soap - TP 1 bar DAILY PRN Administration HYGEINE Eucalyptus/Menthol/Phenol/Sorbitol 1 each 09/22/18 14:48 Cepastat Lozenge - MM Q4H PRN SORE THROAT Guaifenesin 10 ml 09/22/18 14:48 Robitussin Dm - PO Q6H PRN COUGH Hydrocortisone 1 applic 10/03/18 12:30 10/20/18 09:29 Hytone 1% Cream - TP Not Given BID MARELY Hydroxyzine Pamoate 50 mg 09/22/18 14:48 10/19/18 21:23 Vistaril - PO 50 mg Q4H PRN Administration AGITATION Ibuprofen 400 mg 09/22/18 14:48 10/20/18 06:43 Motrin - PO 400 mg Q6H PRN Administration Pain level 4-6 Loperamide HCl 4 mg 09/22/18 14:48 10/10/18 21:30 Imodium - PO 4 mg Q6H PRN Administration DIARRHEA Magnesium Citrate 300 ml 09/22/18 14:48 Citroma - PO Q48H PRN CONSTIPATION Magnesium Hydroxide 30 ml 09/22/18 14:48 Milk Of Magnesia - PO DAILY PRN CONSTIPATION Melatonin 5 mg 09/22/18 22:00 10/19/18 21:23 Melatonin PO 5 mg HS PRN Administration INSOMNIA Nicotine 21 mg 09/22/18 15:30 10/20/18 09:29 Nicoderm Patch - TD Not Given DAILY [facility] Multivit/Folic Acid/Iron 1 tab 09/23/18 10:00 10/20/18 09:29 Vitamins (Sjr) - PO Not Given DAILY [facility] Pseudoephedrine/Triprolidine 1 combo 09/22/18 14:48 Actifed - PO TID PRN NASAL CONGESTION Suvorexant 20 mg 10/19/18 22:00 10/19/18 21:24 Belsomra PO 10/22/18 21:59 20 mg HS PRN Administration INSOMNIA Thiamine HCl 100 mg 09/22/18 22:00 10/19/18 21:27 Vitamin B1 - PO Not Given HS MARELY Tolnaftate 1 applic 09/24/18 22:00 10/20/18 09:29 Tinactin 1% Cream - TP Not Given BID MARELY FIRST DOSE OF VIVITROL 380 MG IM GIVEN ON RIGHT GLUTEAL MUSCLE TODAY 10/20/18. PT WILL BE FOLLOWING UP AT [facility] FOR MAT MONTHLY. COUNSELOR HAS MADE ARRANGEMENT FOR CONTINUED TREATMENT AT THIS LOCATION.
== END 2018-10-20 11:30 | disposition home or self-care (01) | DRG 772 ==
LOC: YASAS 13:02 → Y5N 14:49
PROVIDERS: ADMIT Psychiatry & Neurology Psychiatry; ATTEND Psychiatry & Neurology Psychiatry
PROC: HZ42ZZZ Group Counseling for Substance Abuse Treatment, Cognitive-Behavioral (ICD-10-PCS; principal; 2018-09-22)
DX: F11.20 Opioid dependence, uncomplicated (principal); F14.20 Cocaine dependence, uncomplicated; F17.210 Nicotine dependence, cigarettes, uncomplicated; F19.280 Other psychoactive substance dependence with psychoactive substance-induced anxiety disorder; F19.282 Other psychoactive substance dependence with psychoactive substance-induced sleep disorder; F43.0 Acute stress reaction; F43.10 Post-traumatic stress disorder, unspecified; R21 Rash and other nonspecific skin eruption; L85.3 Xerosis cutis; Z87.81 Personal history of (healed) traumatic fracture
CPT/HCPCS: 36415; 80053; 80307; 81003; 85027; 86593; 87389; 93005; 93010; J2315

== ENCOUNTER 2020-05-01 12:49 | Inpatient (IN) | payer OTHER ==
--- NOTE | 2020-05-01 13:01 | BHS.RME ---
Substance Use & Tx History - Substance Use History Heroin Substance amount: 6 bags Frequency of use: Daily Substance route: Inhalation (ex: sniffing or snorting), Injection (ex: intravenous or skin popping) Date of Last Use: 05/01/20 Cocaine- Powder Substance amount: $20 Frequency of use: Less than 3 times per week Substance route: Inhalation (ex: sniffing or snorting) Date of Last Use: 04/30/20 Nicotine Substance amount: 1 pack Frequency of use: Daily Substance route: Smoking Date of Last Use: 05/01/20 Physical/Psych/Mental Status - Behavior General Behavior: Increased activity (restlessness, agitation) Eye Contact: Normal - Cooperativeness Cooperativeness: Cooperative - Thinking Thought Processes: Tight, Logical, Goal Directed - Physical Health Problems Is patient presently having any pain?: No Does patient presently have any injuries (include location): No Does patient currently have a fever: No Is patient : No COWS - Scale Resting Pulse: 0= [place] 80 or Below Sweatin= Chills/Flushing Restless Observation: 1= Difficult to Sit Still Pupil Size: 1= Pupils >than Normal Bone or Joint Aches: 1= Mild Discomfort Runny Nose/ Eye Tearin= Nasal Congestion GI Upset > 30mins: 1= Stomach Cramp Tremor Observation: 1= Tremor [place], Not Seen Yawning Observation: 1= 1-2x During Session Anxiety or Irritability: 2=Irritable/Anxious Goose Flesh Skin: 3=Piloerection COWS Score: 13
[2020-05-01 16:23] VITALS: BMI 33.2
--- NOTE | 2020-05-01 17:17 | HP ---
COWS - Scale Resting Pulse: 0= [place] 80 or Below Sweatin= Chills/Flushing Restless Observation: 1= Difficult to Sit Still Pupil Size: 1= Pupils >than Normal Bone or Joint Aches: 1= Mild Discomfort Runny Nose/ Eye Tearin= Nasal Congestion GI Upset > 30mins: 1= Stomach Cramp Tremor Observation: 1= Tremor [place], Not Seen Yawning Observation: 1= 1-2x During Session Anxiety or Irritability: 2=Irritable/Anxious Goose Flesh Skin: 3=Piloerection COWS Score: 13 CIWA Score - Admission Criteria OASAS Guidelines: Admission for Medically Managed Detox: Requires at least one of the followin. CIWA greater than 12 2. Seizures within the past 24 hours 3. Delirium tremens within the past 24 hours 4. Hallucinations within the past 24 hours 5. Acute intervention needed for co occurring medical disorder 6. Acute intervention needed for co occurring psychiatric disorder 7. Severe withdrawal that cannot be handled at a lower level of care (continued vomiting, continued diarrhea, abnormal vital signs) requiring intravenous medication and/or fluids 8. Admitting History and Physical - Admission Chief Complaint: "I want to get clean from using heroin and cocaine" History of Present Illness: CC: "I want to get clean from using heroin and cocaine" HPI: Julio is a 34 year old with polysubstance use disorder (heroin, cocaine, crack, nicotine), with a hospital admission at [facility] February 2020 for blood clot, currently on Eliquis, who presents for detox. - Substance Use History Heroin Substance amount: 6 bags Frequency of use: Daily Substance route: Inhalation (ex: sniffing or snorting), Injection (ex: intravenous or skin popping) Date of Last Use: 05/01/20 Date of first use: 20 Cocaine- Powder Substance amount: $20 Frequency of use: Less than 3 times per week Substance route: Inhalation (ex: sniffing or snorting) Date of Last Use: 04/30/20 Date of first use: 22 Crack Substance amount: $20 Frequency of use: 1-2 times a month Substance route: Smoking Nicotine Substance amount: 1 pack Frequency of use: Daily Substance route: Smoking Date of Last Use: 05/01/20 PMH: Blood clot February 2020 PSH: None Psych: Bipolar, PTSD (not on meds) Social: Lives with mother [place] Legal: [facility] court Allergies: Penicillin - Smoking History Smoking history: Current every day smoker Have you smoked in the past 12 months: Yes Aproximately how many cigarettes per day: 20 - Alcohol/Substance Use Hx Alcohol Use: No Admission ROS BHS - HPI Chief Complaint: "I want to get clean from using heroin and cocaine" Allergies/Adverse Reactions: Allergies Allergy/AdvReac Type Severity Reaction Status Date / Time penicillin G Allergy Severe Rash Verified 05/01/20 16:30 Exam Limitations: No Limitations - Ebola screening Have you traveled outside of the country in the last 21 days: No Have you had contact with anyone from an Ebola affected area: No Have you been sick,other than usual withdrawal symptoms: No Do you have a fever: No - Review of Systems Constitutional: No Symptoms Reported, Unintentional Wgt. Loss EENT: reports: Nose Congestion. denies: Blurred Vision, Eye Pain, Ear Pain Respiratory: denies: Cough, Shortness of Breath Cardiac: denies: Chest Pain, Lightheadedness GI: reports: Nausea, Abdominal cramping. denies: Constipated, Diarrhea Musculoskeletal: denies: Back Pain, Joint Pain Integumentary: denies: Bruising, Rash Neuro: denies: Headache, Numbness, Tingling, Tremors Endocrine: reports: No Symptoms Reported Hematology: reports: Blood Clots Psychiatric: reports: Depressed Patient History - Patient Medical History Hx Anemia: No Hx Asthma: No Hx Chronic Obstructive Pulmonary Disease (COPD): No Hx Cancer: No Hx Cardiac Disorders: No Hx Congestive Heart Failure: No Hx Hypertension: No Hx Hypercholesterolemia: No Hx Pacemaker: No HX Cerebrovascular Accident: No Hx Seizures: No Hx Dementia: No Hx Diabetes: No Hx Gastrointestinal Disorders: No Hx Genitourinary Disorders: No Hx Sexually Transmitted Disorders: No Hx Renal Disease (ESRD): No Hx Thyroid Disease: No Hx Human Immunodeficiency Virus (HIV): No (last 2017 negative) Hx Hepatitis C: No Hx Depression: Yes Hx Suicide Attempt: No Hx Bipolar Disorder: No Hx Schizophrenia: No - Patient Surgical History Past Surgical History: No Hx Neurologic Surgery: No Hx Cataract Extraction: No Hx Cardiac Surgery: No Hx Lung Surgery: No Hx Breast Surgery: No Hx Breast Biopsy: No Hx Abdominal Surgery: No Hx Appendectomy: No Hx Cholecystectomy: No Hx Genitourinary Surgery: No Hx Section: No Hx Orthopedic Surgery: No Anesthesia Reaction: No - PPD History Date: 09/24/18 - Reproductive History Patient : No - Smoking Cessation Smoking history: Current every day smoker Have you smoked in the past 12 months: Yes Aproximately how many cigarettes per day: 20 Hx Chewing Tobacco Use: No Initiated information on smoking cessation: Yes 'Breaking Loose' booklet given: 05/01/20 - Substance & Tx. History Hx Alcohol Use: No Hx Substance Use: Yes Substance Use Type: Cocaine, Heroin - Substances abused Heroin Substance route: Inhalation Frequency: Daily Amount used: 6 bags Age of first use: 21 Date of last use: 04/30/20 Cocaine Substance route: Inhalation Frequency: 3-6 times per week Amount used: 20 dollars Age of first use: 22 Date of last use: 04/30/20 Admission Physical Exam [facility] - Vital Signs Vital Signs: Vital Signs - 24 hr 05/01/20 05/01/20 16:21 16:37 Temperature 98.3 F 98.3 F Pulse Rate 74 74 Respiratory 19 19 Rate Blood Pressure 120/66 - Physical General Appearance: Yes: Within Normal Limits, Other (very tired) HEENTM: Yes: Hearing grossly Normal, Normocephalic, Normal Voice, RICK Respiratory: Yes: Lungs Clear, Normal Breath Sounds. No: Respiratory Distress, Rapid RR, Accessory Muscle Use, Crackles Neck: Yes: Within Normal Limits, No masses,lesions,Nodules, Supple Breast: Yes: Breast Exam Deferred Cardiology: Yes: Regular Rhythm, Regular Rate, S1, S2 Abdominal: Yes: Normal Bowel Sounds, Non Tender, Flat, Soft Genitourinary: Yes: Within Normal Limits Back: Yes: Normal Inspection Musculoskeletal: Yes: full range of Motion, Gait Steady Extremities: Yes: Normal Inspection. No: Tremors, Cyanosis, Erythema Neurological: Yes: Fully Oriented, Alert, Motor Strength 5/5, Finger to Nose Integumentary: Yes: Normal Color, Dry, Warm - Diagnostic (1) Opioid use with withdrawal Current Visit: Yes Status: Acute (2) Cocaine dependence Current Visit: No Status: Acute (3) Depressive disorder Current Visit: No Status: Chronic (4) Nicotine dependence Current Visit: No Status: Chronic (5) PTSD (post-traumatic stress disorder) Current Visit: No Status: Chronic Cleared for Admission [facility] - Detox or Rehab [facility] Level of Care: Medically Managed Detox Regimen/Protocol: Methadone Screened but not Admitted - Documentation of Visit Screened but not Admitted: No Breathalyzer - Breathalyzer Breathalyzer: 0 Urine Drug Screen - Test Device Lot number: [id number] Expiration date: 01/02/22 - Control Is test valid?: Yes - Results Drug screen NEGATIVE: No Urine drug screen results: MARTHA-Cocaine, FEN-Fentanyl, MOP-Opiates Inpatient Rehab Admission - Rehab Decision to Admit Inpatient rehab admission?: No
[2020-05-01] MEDS ORDERED: ACETAMINOPHEN 325 MG TABLET (FP) PO PRN ×2 (17:54)
[2020-05-01] MEDS ORDERED: MENTHOL/PHENOL 1 EACH UD MM PRN (17:54)
[2020-05-01] MEDS ORDERED: MAGNESIUM HYDROX 2400MG/30ML ORAL SUSPENSION 30 ML CUP PO PRN (17:54)
[2020-05-01] MEDS ORDERED: ONDANSETRON *ODT* 4 MG TABLET SL PRN (17:54)
[2020-05-01] MEDS ORDERED: IBUPROFEN 400 MG TABLET (FP) PO PRN (17:54)
[2020-05-01] MEDS ORDERED: cloNIDine HCL 0.1 MG TABLET PO PRN (17:54)
[2020-05-01] MEDS ORDERED: MAG HYDROX/AL HYDROX/SIMETH 30 ML UNIT-DOSE CUP PO PRN (17:54)
[2020-05-01] MEDS ORDERED: NICOTINE POLACRILEX 2 MG GUM BUC PRN (17:54)
[2020-05-01] MEDS ORDERED: MAGNESIUM CITRATE 300 ML BOTTLE PO PRN (17:54)
[2020-05-01] MEDS ORDERED: BISMUTH SUBSALICYLATE 524 MG/30 ML UD PO PRN (17:54)
[2020-05-01] MEDS ORDERED: METHADONE HCL 10 MG TABLET (FOR DETOX USE ONLY) PO ONE (18:30)
[2020-05-01] MEDS: hydrOXYzine PAMOATE 25 MG CAPSULE (FP) PO SCH ×2 (19:15→22:02)
[2020-05-01] MEDS: NICOTINE 21 MG/24 HOURS TOPICAL PATCH TD SCH (19:19)
[2020-05-01] MEDS: THIAMINE HCL 100 MG TABLET (FP) PO SCH (22:02)
[2020-05-01] MEDS: APIXABAN 5 MG TABLET PO SCH (22:02)
[2020-05-01] MEDS: MELATONIN 5 MG TABLETS PO SCH (22:02)
[2020-05-02] MEDS: hydrOXYzine PAMOATE 25 MG CAPSULE (FP) PO SCH ×5 (06:05→22:28)
[2020-05-02] MEDS ORDERED: METHADONE HCL 10 MG TABLET (FOR DETOX USE ONLY) ONE (09:35)
[2020-05-02] MEDS ORDERED: METHADONE HCL 5 MG TABLET (FOR DETOX USE ONLY) ONE (09:35)
[2020-05-02] MEDS ORDERED: METHADONE (DETOX) 20 MG, METHADONE (DETOX) 5 MG PO ONE (10:00)
--- NOTE | 2020-05-02 10:13 | PN ---
[facility] COWS - Scale Resting Pulse: 0= [place] 80 or Below Sweatin= No chills or Flushing Restless Observation: 1= Difficult to Sit Still Pupil Size: 1= Pupils >than Normal Bone or Joint Aches: 1= Mild Discomfort Runny Nose/ Eye Tearin= Nasal Congestion GI Upset > 30mins: 1= Stomach Cramp Tremor Observation of Outstretched Hands: 1= Tremor [place], Not Seen Yawning Observation: 1= 1-2x During Session Anxiety or Irritability: 2=Irritable/Anxious Goose Flesh Skin: 0=Smooth Skin COWS Score: 9 S Progress Note (SOAP) Subjective: alert,irritable,anxious,interrupted sleep,pain in the body and back ,nausea Objective: 05/02/20 10:11 Vital Signs Temperature 97.3 F L 05/02/20 08:50 Pulse Rate 64 05/02/20 08:50 Respiratory Rate 20 05/02/20 08:50 Blood Pressure 123/76 05/02/20 08:50 O2 Sat by Pulse Oximetry (%) 100 05/02/20 06:11 05/02/20 10:13 labs pending Assessment: 05/02/20 10:15 withdrawal symptom Plan: continue methadone regimen,valium 10 mgs po q 4 hrs prn for severe withdrawal, on eliquis 5 mgs po bid for dvt of right leg
[2020-05-02] MEDS: PRENATAL VITAMINS W/ FOLIC ACID TABLET (FP) PO SCH (10:15)
[2020-05-02] MEDS: APIXABAN 5 MG TABLET PO SCH ×2 (10:15→22:28)
[2020-05-02] MEDS: diazePAM 5 MG TABLET PO PRN ×2 (10:17→22:28)
[2020-05-02] MEDS: NICOTINE 21 MG/24 HOURS TOPICAL PATCH TD SCH (10:18)
[2020-05-02 11:56] LABS: HEMATOCRIT 39.6 % (35.4-49); MCH 29.7 pg (25.7-33.7); MCHC 32.9 g/dl (32.0-35.9); MEAN CELL VOLUME 90.2 fl (80-96); MEAN PLT VOLUME 8.4 fl (7.5-11.1); PLATELET COUNT 304 K/MM3 (134-434); RBC 4.39 M/mm3 (4.00-5.60); RDW 13.6 % (11.9-15.9)
[2020-05-02 12:04] LABS: INR 1.08 (0.83-1.09); PROTHROMBIN TIME (PATIENT) 12.7 SEC (9.7-13.0)
[2020-05-02 12:14] LABS: ALBUMIN 3.4 g/dl (3.4-5.0); BLOOD UREA NITROGEN 14.6 mg/dL (7-18); CALCIUM 8.5 mg/dL (8.5-10.1); POTASSIUM 4.3 mmol/L (3.5-5.1)
[2020-05-02 12:20] LABS: BILIRUBIN,TOTAL 0.3 mg/dL (0.2-1); CREATININE 0.8 mg/dL (0.55-1.3); TOT PROT 7.1 g/dl (6.4-8.2)
--- NOTE | 2020-05-02 14:56 | EKG ---
Test Reason : Blood Pressure : / mmHG Vent. Rate : 067 BPM Atrial Rate : 067 BPM P-R Int : 152 ms QRS Dur : 088 ms QT Int : 414 ms P-R-T Axes : 020 053 041 degrees QTc Int : 437 ms NORMAL SINUS RHYTHM NORMAL ECG WHEN COMPARED WITH ECG OF 16-OCT-2018 07:23, NO SIGNIFICANT CHANGE WAS FOUND Confirmed by BRICE LOPEZ MD ([id number]) on 05/02/2020 2:56:22 PM Referred By: Confirmed By:BRICE LOPEZ MD
[2020-05-02] MEDS: MELATONIN 5 MG TABLETS PO SCH (22:28)
[2020-05-02] MEDS: THIAMINE HCL 100 MG TABLET (FP) PO SCH (22:28)
[2020-05-03] MEDS: hydrOXYzine PAMOATE 25 MG CAPSULE (FP) PO SCH ×5 (06:47→22:10)
[2020-05-03] MEDS ORDERED: METHADONE HCL 10 MG TABLET (FOR DETOX USE ONLY) PO ONE (10:00)
--- NOTE | 2020-05-03 10:33 | PN ---
[facility] COWS - Scale Resting Pulse: 0= [place] 80 or Below Sweatin= No chills or Flushing Restless Observation: 0= Sits Still Pupil Size: 0= Normal to Room Light Bone or Joint Aches: 2= Severe Diffuse Aches Runny Nose/ Eye Tearin= Runny Nose/Eyes GI Upset > 30mins: 2= Nausea/Diarrhea Tremor Observation of Outstretched Hands: 2= Slight Tremor Visible Yawning Observation: 1= 1-2x During Session Anxiety or Irritability: 2=Irritable/Anxious Goose Flesh Skin: 0=Smooth Skin COWS Score: 11 [facility] Progress Note (SOAP) Subjective: alert,irritable,anxious,interrupted sleep,pain in the body,nausea Objective: 05/03/20 10:29 Vital Signs Temperature 97.8 F 05/03/20 08:42 Pulse Rate 71 05/03/20 08:42 Respiratory Rate 18 05/03/20 08:42 Blood Pressure 118/67 05/03/20 08:42 O2 Sat by Pulse Oximetry (%) 99 05/03/20 06:40 Assessment: 05/03/20 10:30 withdrawal symptom Plan: continue detox,methadone regimen,continue valium 10 mgs po q 4 hrs prn for severe withdrawal ,psychiatric evaluation for insomnia
[2020-05-03] MEDS: diazePAM 5 MG TABLET PO PRN ×2 (10:44→17:49)
[2020-05-03] MEDS: PRENATAL VITAMINS W/ FOLIC ACID TABLET (FP) PO SCH (10:44)
[2020-05-03] MEDS: METHOCARBAMOL 500 MG TABLET PO PRN (10:45)
[2020-05-03] MEDS: NICOTINE 21 MG/24 HOURS TOPICAL PATCH TD SCH (10:46)
[2020-05-03] MEDS: APIXABAN 5 MG TABLET PO SCH ×2 (11:17→22:09)
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
[2020-05-03] MEDS ORDERED: QUEtiapine FUMARATE 100 MG TABLET (FP) PO SCH (22:00)
[2020-05-03] MEDS: MELATONIN 5 MG TABLETS PO SCH (22:09)
[2020-05-03] MEDS: THIAMINE HCL 100 MG TABLET (FP) PO SCH (22:10)
[2020-05-04] MEDS: hydrOXYzine PAMOATE 25 MG CAPSULE (FP) PO SCH ×3 (06:57→14:35)
[2020-05-04] MEDS ORDERED: METHADONE HCL 10 MG TABLET (FOR DETOX USE ONLY) ONE (08:51)
[2020-05-04] MEDS ORDERED: METHADONE HCL 5 MG TABLET (FOR DETOX USE ONLY) ONE (08:52)
[2020-05-04] MEDS ORDERED: METHADONE (DETOX) 10 MG, METHADONE (DETOX) 5 MG PO ONE (10:00)
[2020-05-04] MEDS: APIXABAN 5 MG TABLET PO SCH (10:09)
[2020-05-04] MEDS: METHOCARBAMOL 500 MG TABLET PO PRN (10:09)
[2020-05-04] MEDS: PRENATAL VITAMINS W/ FOLIC ACID TABLET (FP) PO SCH (10:09)
[2020-05-04] MEDS: NICOTINE 21 MG/24 HOURS TOPICAL PATCH TD SCH (10:10)
[2020-05-04] MEDS: diazePAM 5 MG TABLET PO PRN (10:12)
--- NOTE | 2020-05-04 11:17 | PN ---
[facility] COWS - Scale Resting Pulse: 0= [place] 80 or Below Sweatin= Beads of Sweat on Face Restless Observation: 1= Difficult to Sit Still Pupil Size: 0= Normal to Room Light Bone or Joint Aches: 2= Severe Diffuse Aches Runny Nose/ Eye Tearin= None GI Upset > 30mins: 0= None Tremor Observation of Outstretched Hands: 0= None Yawning Observation: 1= 1-2x During Session Anxiety or Irritability: 2=Irritable/Anxious Goose Flesh Skin: 0=Smooth Skin COWS Score: 9 S Progress Note (SOAP) Subjective: c/o muscle aches, anxiety, sweats, and irritability. Objective: 05/04/20 11:19 Vital Signs 05/04/20 05/04/20 06:30 08:36 Temperature 97.7 F 97.3 F L Pulse Rate 75 69 Respiratory 18 16 Rate Blood Pressure 131/71 116/70 O2 Sat by Pulse 97 Oximetry (%) Laboratory Last Values WBC 6.0 K/mm3 (4.0-10.0) 05/02/20 08:05 RBC 4.39 M/mm3 (4.00-5.60) 05/02/20 08:05 Hgb 13.0 GM/dL (11.7-16.9) 05/02/20 08:05 Hct 39.6 % (35.4-49) 05/02/20 08:05 MCV 90.2 fl (80-96) 05/02/20 08:05 MCH 29.7 pg (25.7-33.7) 05/02/20 08:05 MCHC 32.9 g/dl (32.0-35.9) 05/02/20 08:05 RDW 13.6 % (11.9-15.9) 05/02/20 08:05 Plt Count 304 K/MM3 (134-434) D 05/02/20 08:05 MPV 8.4 fl (7.5-11.1) 05/02/20 08:05 PT with INR 12.70 SEC (9.7-13.0) 05/02/20 08:05 INR 1.08 (0.83-1.09) 05/02/20 08:05 Sodium 140 mmol/L (136-145) 05/02/20 08:05 Potassium 4.3 mmol/L (3.5-5.1) 05/02/20 08:05 Chloride 105 mmol/L (98-107) 05/02/20 08:05 Carbon Dioxide 27 mmol/L (21-32) 05/02/20 08:05 Anion Gap 8 MMOL/L (8-16) 05/02/20 08:05 BUN 14.6 mg/dL (7-18) 05/02/20 08:05 Creatinine 0.8 mg/dL (0.55-1.3) 05/02/20 08:05 Est GFR (CKD-EPI)AfAm 136.03 05/02/20 08:05 Est GFR (CKD-EPI)NonAf 117.37 05/02/20 08:05 Random Glucose 91 mg/dL (74-106) 05/02/20 08:05 Calcium 8.5 mg/dL (8.5-10.1) 05/02/20 08:05 Total Bilirubin 0.3 mg/dL (0.2-1) 05/02/20 08:05 AST 22 U/L (15-37) 05/02/20 08:05 ALT 30 U/L (13-61) 05/02/20 08:05 Alkaline Phosphatase 76 U/L (45-117) 05/02/20 08:05 Total Protein 7.1 g/dl (6.4-8.2) 05/02/20 08:05 Albumin 3.4 g/dl (3.4-5.0) 05/02/20 08:05 Syphilis Serology Non-reactive (NONREACTIVE) 05/02/20 08:05 COVID-19 (AUTUMN) Not detected (Not Detected) 05/01/20 18:00 Labs noted. Assessment: 05/04/20 11:19 AOX3 and in no acute respiratory distress. Full ROM, ambulating in the unit. Withdrawal symptoms. Plan: continue detox.
[2020-05-04 13:15] VITALS: BP 109/68; PULSE 77; TEMP 97.5
--- NOTE | 2020-05-04 18:35 | DS ---
[facility] Detox Discharge Summary Admission Date: 05/01/20 Discharge Date: 05/04/20 - History Present History: Cocaine Dependence, Opioid Dependence Pertinent Past History: Depression - Physical Exam Results Vital Signs: Vital Signs Temperature 97.5 F L 05/04/20 12:48 Pulse Rate 77 05/04/20 12:48 Respiratory Rate 18 05/04/20 12:48 Blood Pressure 109/68 05/04/20 12:48 O2 Sat by Pulse Oximetry (%) 98 05/04/20 12:48 Pertinent Admission Physical Exam Findings: withdrawal sx Laboratory Last Values WBC 6.0 K/mm3 (4.0-10.0) 05/02/20 08:05 RBC 4.39 M/mm3 (4.00-5.60) 05/02/20 08:05 Hgb 13.0 GM/dL (11.7-16.9) 05/02/20 08:05 Hct 39.6 % (35.4-49) 05/02/20 08:05 MCV 90.2 fl (80-96) 05/02/20 08:05 MCH 29.7 pg (25.7-33.7) 05/02/20 08:05 MCHC 32.9 g/dl (32.0-35.9) 05/02/20 08:05 RDW 13.6 % (11.9-15.9) 05/02/20 08:05 Plt Count 304 K/MM3 (134-434) D 05/02/20 08:05 MPV 8.4 fl (7.5-11.1) 05/02/20 08:05 PT with INR 12.70 SEC (9.7-13.0) 05/02/20 08:05 INR 1.08 (0.83-1.09) 05/02/20 08:05 Sodium 140 mmol/L (136-145) 05/02/20 08:05 Potassium 4.3 mmol/L (3.5-5.1) 05/02/20 08:05 Chloride 105 mmol/L (98-107) 05/02/20 08:05 Carbon Dioxide 27 mmol/L (21-32) 05/02/20 08:05 Anion Gap 8 MMOL/L (8-16) 05/02/20 08:05 BUN 14.6 mg/dL (7-18) 05/02/20 08:05 Creatinine 0.8 mg/dL (0.55-1.3) 05/02/20 08:05 Est GFR (CKD-EPI)AfAm 136.03 05/02/20 08:05 Est GFR (CKD-EPI)NonAf 117.37 05/02/20 08:05 Random Glucose 91 mg/dL (74-106) 05/02/20 08:05 Calcium 8.5 mg/dL (8.5-10.1) 05/02/20 08:05 Total Bilirubin 0.3 mg/dL (0.2-1) 05/02/20 08:05 AST 22 U/L (15-37) 05/02/20 08:05 ALT 30 U/L (13-61) 05/02/20 08:05 Alkaline Phosphatase 76 U/L (45-117) 05/02/20 08:05 Total Protein 7.1 g/dl (6.4-8.2) 05/02/20 08:05 Albumin 3.4 g/dl (3.4-5.0) 05/02/20 08:05 Syphilis Serology Non-reactive (NONREACTIVE) 05/02/20 08:05 COVID-19 (AUTUMN) Not detected (Not Detected) 05/01/20 18:00 - Medication Discharge Medications: Ambulatory Orders Mirtazapine [Remeron -] 30 mg PO HS #30 tablet 11/22/18 Quetiapine Fumarate [Seroquel -] 100 mg PO HS #30 tablet 11/22/18 Apixaban [Eliquis] 5 mg PO BID 05/01/20 Sertraline HCl [Zoloft] 25 mg PO DAILY 05/01/20 - Diagnosis (1) Opioid use with withdrawal Current Visit: Yes Status: Acute (2) Cocaine dependence Current Visit: Yes Status: Chronic Qualifiers: Substance use status: uncomplicated Qualified Code(s): F14.20 - Cocaine dependence, uncomplicated (3) Nicotine dependence Current Visit: Yes Status: Chronic Qualifiers: Nicotine product type: cigarettes Substance use status: uncomplicated Qualified Code(s): F17.210 - Nicotine dependence, cigarettes, uncomplicated (4) Substance induced mood disorder Current Visit: Yes Status: Chronic - AMA Did Patient Leave Against Medical Advice: Yes
[2020-05-05] MEDS ORDERED: METHADONE HCL 10 MG TABLET (FOR DETOX USE ONLY) PO ONE (10:00)
[2020-05-06] MEDS ORDERED: METHADONE HCL 5 MG TABLET (FOR DETOX USE ONLY) PO ONE (06:00)
== END 2020-05-04 17:14 | disposition left against medical advice (07) | DRG 770 ==
LOC: YASAS 12:49 → Y3N 16:42
PROVIDERS: ADMIT Allergy & Immunology; ATTEND Allergy & Immunology
PROC: HZ2ZZZZ Detoxification Services for Substance Abuse Treatment (ICD-10-PCS; principal; 2020-05-01)
DX: F11.23 Opioid dependence with withdrawal (principal); F14.20 Cocaine dependence, uncomplicated; F17.210 Nicotine dependence, cigarettes, uncomplicated; F19.24 Other psychoactive substance dependence with psychoactive substance-induced mood disorder; F43.10 Post-traumatic stress disorder, unspecified; F32.9 Major depressive disorder, single episode, unspecified; G47.00 Insomnia, unspecified; Z88.0 Allergy status to penicillin
CPT/HCPCS: 36415; 80053; 85027; 85610; 86780; 93005; 93010; U0003

== ENCOUNTER 2022-02-28 08:51 | Inpatient (IN) | payer OTHER ==
[2022-02-27 23:30] VITALS: BMI 31.3
[2022-02-28] MEDS: hydrOXYzine PAMOATE 25 MG CAPSULE (FP) PO SCH ×5 (06:00→22:43)
[~2022-02-28 08:51] MED LIST: ACETAMINOPHEN 325 MG TABLET (FP) PO PRN; BENZOCAINE/MENTHOL (CHLORASEPTIC ) LOZENGE MM PRN; BISMUTH SUBSALICYLATE 524 MG/30 ML PO PRN; DICYCLOMINE HCL 10 MG CAPSULE PO PRN; IBUPROFEN 400 MG TABLET (FP) PO PRN; IBUPROFEN 600 MG TABLET (FP) PO PRN; LOPERAMIDE HCL 2 MG CAPSULE PO PRN; MAG HYDROX/AL HYDROX/SIMETH 30 ML UNIT-DOSE CUP PO PRN; MAGNESIUM CITRATE 300 ML BOTTLE PO PRN; MAGNESIUM HYDROX 2400MG/30ML ORAL SUSPENSION 30 ML CUP PO PRN; NICOTINE 10 MG CARTRIDGE (INHALER) IH PRN; NICOTINE POLACRILEX 2 MG GUM BUC PRN; ONDANSETRON *ODT* 4 MG TABLET SL PRN; methaDONE HCL 10 MG TABLET (FOR DETOX USE ONLY) ONE; methaDONE HCL 10 MG TABLET (FOR DETOX USE ONLY) PO ONE
[2022-02-28] MEDS: PRENATAL VITAMINS W/ FOLIC ACID TABLET (FP) PO SCH (13:59)
[2022-02-28] MEDS: NICOTINE 21 MG/24 HOURS TOPICAL PATCH TD SCH (13:59)
[2022-02-28] MEDS: cloNIDine HCL 0.1 MG TABLET PO PRN ×2 (18:17→22:43)
[2022-02-28] MEDS: THIAMINE HCL 100 MG TABLET (FP) PO SCH (22:43)
[2022-02-28] MEDS: MELATONIN 5 MG TABLETS PO SCH (22:43)
[2022-02-28] MEDS: diazePAM 5 MG TABLET PO PRN (22:43)
[2022-03-01] MEDS: hydrOXYzine PAMOATE 25 MG CAPSULE (FP) PO SCH ×5 (06:51→22:25)
[2022-03-01] MEDS ORDERED: methaDONE HCL 10 MG TABLET (FOR DETOX USE ONLY) ONE (09:28)
[2022-03-01 10:49] LABS: HEMATOCRIT 38.1 % (35.4-49); HEMOGLOBIN 12.8 GM/dL (11.7-16.9); MCH 29.3 pg (25.7-33.7); MCHC 33.6 g/dl (32.0-35.9); MEAN CELL VOLUME 87.1 fl (80-96); MEAN PLT VOLUME 8.2 fl (7.5-11.1); PLATELET COUNT 267 10^3/uL (134-434); RBC 4.37 M/mm3 (4.00-5.60); WHITE BLOOD COUNT 6.3 K/mm3 (4.0-10.0)
[2022-03-01 10:56] LABS: CALCIUM 9.1 mg/dL (8.5-10.1)
[2022-03-01 10:57] LABS: ALBUMIN 3.6 g/dl (3.4-5.0); BLOOD UREA NITROGEN 9.9 mg/dL (7-18)
[2022-03-01] MEDS: diazePAM 5 MG TABLET PO PRN ×2 (11:00→22:27)
[2022-03-01 11:01] LABS: CREATININE 0.9 mg/dL (0.55-1.3)
[2022-03-01 11:02] LABS: BILIRUBIN,TOTAL 0.4 mg/dL (0.2-1); TOT PROT 7.7 g/dl (6.4-8.2)
[2022-03-01] MEDS: PRENATAL VITAMINS W/ FOLIC ACID TABLET (FP) PO SCH (11:08)
[2022-03-01] MEDS: NICOTINE 21 MG/24 HOURS TOPICAL PATCH TD SCH (11:08)
[2022-03-01] MEDS: THIAMINE HCL 100 MG TABLET (FP) PO SCH (22:25)
[2022-03-01] MEDS: MELATONIN 5 MG TABLETS PO SCH (22:25)
[2022-03-01] MEDS: METHOCARBAMOL 500 MG TABLET PO PRN (22:26)
[2022-03-02] MEDS: hydrOXYzine PAMOATE 25 MG CAPSULE (FP) PO SCH ×4 (06:56→17:34)
[2022-03-02] MEDS ORDERED: methaDONE HCL 10 MG TABLET (FOR DETOX USE ONLY) PO ONE (10:00)
[2022-03-02] MEDS: diazePAM 5 MG TABLET PO PRN ×2 (10:30→17:35)
[2022-03-02] MEDS: METHOCARBAMOL 500 MG TABLET PO PRN (10:31)
[2022-03-02] MEDS: PRENATAL VITAMINS W/ FOLIC ACID TABLET (FP) PO SCH (10:31)
[2022-03-02] MEDS: NICOTINE 21 MG/24 HOURS TOPICAL PATCH TD SCH (10:32)
[2022-03-02 17:24] VITALS: BP 138/91; PULSE 76; TEMP 97.8
[2022-03-04] MEDS ORDERED: methaDONE HCL 10 MG TABLET (FOR DETOX USE ONLY) PO ONE (10:00)
== END 2022-03-02 19:47 | disposition left against medical advice (07) | DRG 770 ==
LOC: YASAS 08:51 → Y3N 12:13
PROVIDERS: ADMIT Allergy & Immunology; ATTEND Surgery
PROC: HZ2ZZZZ Detoxification Services for Substance Abuse Treatment (ICD-10-PCS; principal; 2022-02-28)
DX: F11.23 Opioid dependence with withdrawal (principal); F14.20 Cocaine dependence, uncomplicated; F17.210 Nicotine dependence, cigarettes, uncomplicated; F41.9 Anxiety disorder, unspecified; F32.A Depression, unspecified; F43.10 Post-traumatic stress disorder, unspecified; G47.00 Insomnia, unspecified; R73.9 Hyperglycemia, unspecified; Z86.718 Personal history of other venous thrombosis and embolism; Z88.0 Allergy status to penicillin
CPT/HCPCS: 36415; 80053; 82947; 83036; 85027; 93005; 93010; C9803-CS; J0735; U0003; U0005

== ENCOUNTER 2024-03-24 20:49 | Inpatient (IN) | payer OTHER ==
[2024-03-24 21:16] VITALS: BMI 29.4
[2024-03-24] MEDS ORDERED: NICOTINE POLACRILEX 2 MG GUM BUC PRN (21:59)
[2024-03-24] MEDS ORDERED: ACETAMINOPHEN 325 MG TABLET (FP) PO PRN (21:59)
[2024-03-24] MEDS ORDERED: DICYCLOMINE HCL 10 MG CAPSULE PO PRN (21:59)
[2024-03-24] MEDS ORDERED: BISMUTH SUBSALICYLATE 524 MG/30 ML PO PRN (21:59)
[2024-03-24] MEDS ORDERED: NICOTINE POLACRILEX 2 MG LOZENGE BC PRN (21:59)
[2024-03-24] MEDS ORDERED: P-EPHED 60MG/TRIPROLIDI 2.5MG TABLET PO PRN (21:59)
[2024-03-24] MEDS ORDERED: MAGNESIUM HYDROX 2400MG/30ML ORAL SUSPENSION 30 ML CUP PO PRN (21:59)
[2024-03-24] MEDS ORDERED: LOPERAMIDE HCL 2 MG CAPSULE PO PRN (21:59)
[2024-03-24] MEDS ORDERED: MAG HYDROX/AL HYDROX/SIMETH 30 ML UNIT-DOSE CUP PO PRN (21:59)
[2024-03-24] MEDS ORDERED: IBUPROFEN 400 MG TABLET (FP) PO PRN (21:59)
[2024-03-24] MEDS ORDERED: guaiFENesin 600 MG TABLET.ER (FP) PO PRN (21:59)
[2024-03-24] MEDS ORDERED: IBUPROFEN 600 MG TABLET (FP) PO PRN (21:59)
[2024-03-24] MEDS ORDERED: NALOXONE (NARCAN) HCL 4 MG/0.1 ML SPRAY NS PRN (21:59)
[2024-03-24] MEDS ORDERED: NALOXONE HCL 0.4 MG/ML VIAL IM PRN (21:59)
[2024-03-24] MEDS ORDERED: BENZONATATE 200 MG CAPSULE PO PRN (21:59)
[2024-03-24] MEDS ORDERED: POLYETHYLENE GLYCOL (HEALTHYLAX) 3350 17 GM PACKET PO PRN (21:59)
[2024-03-24] MEDS ORDERED: BENZOCAINE/MENTHOL (CHLORASEPTIC ) LOZENGE MM PRN (21:59)
[2024-03-24] MEDS ORDERED: ONDANSETRON *ODT* 4 MG TABLET SL PRN (21:59)
[2024-03-25] MEDS: MELATONIN 5 MG TABLETS PO SCH (00:27)
[2024-03-25] MEDS: THIAMINE 100 MG TABLET PO SCH (00:27)
[2024-03-25] MEDS ORDERED: PRENATAL VITAMINS W/ FOLIC ACID TABLET (FP) PO ONE (10:14)
[2024-03-25] MEDS ORDERED: methaDONE HCL 10 MG TABLET (FOR DETOX USE ONLY) ONE (10:14)
[2024-03-25] MEDS: PRENATAL VITAMINS W/ FOLIC ACID TABLET (FP) PO SCH (10:15)
[2024-03-25] MEDS: methaDONE HCL 10 MG TABLET (FOR DETOX USE ONLY) PO ONE (10:15)
[2024-03-25] MEDS: diazePAM 5 MG TABLET PO PRN (12:16)
[2024-03-25] MEDS: cloNIDine HCL 0.1 MG TABLET PO PRN (12:16)
[2024-03-25] MEDS: METHOCARBAMOL 500 MG TABLET PO PRN (22:27)
[2024-03-25] MEDS: hydrOXYzine PAMOATE 25 MG CAPSULE (FP) PO PRN (22:28)
[2024-03-26] MEDS: APIXABAN 5 MG TABLET PO SCH (10:25)
[2024-03-26 11:19] LABS: POTASSIUM 4.2 mmol/L (3.5-5.1)
[2024-03-26 11:22] LABS: CALCIUM 9.1 mg/dL (8.5-10.1)
[2024-03-26 11:23] LABS: ALBUMIN 3.4 g/dl (3.4-5.0); BLOOD UREA NITROGEN 10.6 mg/dL (7-18)
[2024-03-26 11:26] LABS: CREATININE 0.7 mg/dL (0.55-1.3)
[2024-03-26 11:28] LABS: BILIRUBIN,TOTAL 0.8 mg/dL (0.2-1); TOT PROT 7.3 g/dl (6.4-8.2)
[2024-03-26] MEDS ORDERED: IBUPROFEN 400 MG TABLET (FP) PO PRN (19:16)
[2024-03-26] MEDS ORDERED: IBUPROFEN 600 MG TABLET (FP) PO PRN (19:17)
[2024-03-26] MEDS: amLODIPine BESYLATE 5 MG TABLET (FP) PO SCH (20:59)
[2024-03-27] MEDS: methaDONE HCL 10 MG TABLET (FOR DETOX USE ONLY) PO ONE (09:46)
[2024-03-27] MEDS: QUEtiapine FUMARATE 100 MG TABLET (FP) PO SCH (22:20)
[2024-03-29 08:43] VITALS: BP 135/85; PULSE 98; RESP 18; TEMP 98
[2024-03-29] MEDS ORDERED: methaDONE HCL 10 MG TABLET (FOR DETOX USE ONLY) PO ONE (10:00)
== END 2024-03-29 08:55 | disposition home or self-care (01) | DRG 773 ==
LOC: YASAS 20:49 → Y6N 03-25 11:16
PROVIDERS: ADMIT Allergy & Immunology; ATTEND Surgery
PROC: HZ2ZZZZ Detoxification Services for Substance Abuse Treatment (ICD-10-PCS; principal; 2024-03-25)
DX: F11.23 Opioid dependence with withdrawal (principal); F14.20 Cocaine dependence, uncomplicated; F17.210 Nicotine dependence, cigarettes, uncomplicated; F19.280 Other psychoactive substance dependence with psychoactive substance-induced anxiety disorder; F19.282 Other psychoactive substance dependence with psychoactive substance-induced sleep disorder; F25.1 Schizoaffective disorder, depressive type; F43.10 Post-traumatic stress disorder, unspecified; F90.9 Attention-deficit hyperactivity disorder, unspecified type; I10 Essential (primary) hypertension; Z86.718 Personal history of other venous thrombosis and embolism; Z62.810 Personal history of physical and sexual abuse in childhood; Z56.0 Unemployment, unspecified; Z59.00 Homelessness unspecified
CPT/HCPCS: 80053; 80305; 86780; 93005; 93010